=== PATIENT | female | born 1940 | race Caucasian/White ===

== ENCOUNTER 2021-09-28 09:03 | Inpatient (IN) | payer OTHER, MEDICARE, SELFPAY ==
[~2021-09-28] VITALS: Ht 152.4 cm; Wt 84.4 kg
[~2021-09-28 09:03] MED LIST: ATI.5 PO; CHOL400T PO; DILT30TA18 PO; DOCU-299 PO; ENAL-197 PO; ISOS30TE PO; NITR0.4T2 SL; NITR100C7 PO; RIVA15TA1 PO; SIMV40TA1 PO; SOTA80TA PO; SYN.05 PO
[2021-09-28 09:07] VITALS: BP 186/72
[2021-09-28] MEDS ORDERED: CLONIDINE HYDROCHLORIDE 0.1 MG TAB PO ONE (09:30)
[2021-09-28] MEDS ORDERED: FUROSEMIDE 40 MG TAB PO ONE (09:30)
[2021-09-28] MEDS ORDERED: SOTALOL 80 MG TAB PO ONE (09:30)
[2021-09-28] MEDS ORDERED: ISOSORBIDE MONONITRATE 30 MG TABER PO SCH (09:30)
[2021-09-28] MEDS ORDERED: DILTIAZEM 30 MG TAB PO ONE (09:30)
[2021-09-28] MEDS ORDERED: LOSARTAN 50 MG TAB PO SCH (09:30)
--- NOTE | 2021-09-28 10:01 | NUR ---
TIANNA SWAB COLLECTED AND WALKED TO LAB.
--- NOTE | 2021-09-28 10:05 | NUR ---
81/F BIB DAUGHTER WITH C/O HIGH BLOOD PRESSURE, CP AND DIZZINESS SINCE YESTERDAY. PER DAUGHTER PATIENTS BLOOD PRESSURE HAS BEEN ELEVATED THE LAST COUPLE DAYS, REPORTS TAKING HER PRESCRIBED HTN MEDICATIONS WITH NO RELIEF. PATIENT STATES SHE WAS HAVING INCREASED DIZZINESS, NAUSEA AND VOMITING WHEN BP WAS ELEVATED AT HOME, STATING WORSENING WHEN WALKING. DENIES TAKING HER MEDICATIONS TODAY PRIOR TO ARRIVAL TO ED, REPORTS 5/10 SHARP PAIN THAT IS CONSTANT, STATES PAIN IS NONRADIATING. DENIES SOB, FEVER, N/V/D AT THIS TIME.
[2021-09-28 10:14] LABS: BASOPHILS # (AUTO) 0.1 K/uL (0.00-0.22); BASOPHILS % (AUTO) 0.9 % (0.0-2.0); EOSINOPHILS # (AUTO) 0.1 K/uL (0-0.4); EOSINOPHILS % (AUTO) 1.9 % (0.0-4.0); HEMATOCRIT 39.1 % (36-48); HEMOGLOBIN 12.7 g/dL (12.0-16.0); LYMPHOCYTES % (AUTO) 18.4 % (20.5-51.1); MEAN CORPUSCULAR HEMOGLOBIN 28 pg (27-31); MEAN CORPUSCULAR HGB CONC 32 g/dL (33-37); MEAN CORPUSCULAR VOLUME 85.9 fL (80-94); MONOCYTES # (AUTO) 0.3 K/uL (0.8-1.0); NEUTROPHILS # (AUTO) 4.1 K/uL (1.8-7.7); NEUTROPHILS % (AUTO) 72.8 % (42.2-75.2); PLATELET COUNT (AUTO) 323 K/uL (140-450); RED BLOOD CELL COUNT(AUTO) 4.56 MIL/uL (4.20-5.40); RED CELL DISTRIBUTION WIDTH 15.1 % (11.6-13.7); WHITE BLOOD COUNT (AUTO) 5.7 K/uL (4.8-10.8)
--- NOTE | 2021-09-28 10:14 | NUR ---
PT TAKEN TO ER BED [address]
[2021-09-28 10:34] LABS: ALBUMIN 3.3 g/dL (3.4-5.0); ANION GAP 10.7 (8-16); ASPARTATE AMINOTRANSFERASE 26 U/L (15-37); CARBON DIOXIDE 32.6 mmol/L (21-32); CHLORIDE 104 mmol/L (98-107); GLUCOSE 115 mg/dL (74-106); POTASSIUM 4.3 mmol/L (3.5-5.1); SODIUM SERUM 143 mmol/L (136-145); TOTAL BILIRUBIN 0.3 mg/dL (0.0-1.0); UREA NITROGEN, BLOOD 16 mg/dL (7-18)
[2021-09-28 11:25] LABS: PROTHROMBIN TIME 10.6 secs (10.8-13.4)
--- NOTE | 2021-09-28 12:30 | NUR ---
PATIENT APPEARS TO BE RESTING IN BED, CALL LIGHT WITHIN REACH. PATIENT ON BEDSIDE ITALIAN TUTOR, WILL CONTINUE TO MONITOR.
[2021-09-28] MEDS ORDERED: CLON-527 TP (13:31)
[2021-09-28] MEDS ORDERED: ZOLPIDEM 5 MG TAB PO PRN (13:40)
[2021-09-28] MEDS ORDERED: POTASSIUM CHLORIDE 10 MEQ TABER PO PRN (13:40)
[2021-09-28] MEDS ORDERED: ONDANSETRON 4 MG/2 ML VIAL IVP PRN (13:40)
[2021-09-28] MEDS ORDERED: ACETAMINOPHEN 325 MG TAB PO PRN (13:40)
[2021-09-28] MEDS ORDERED: HYDROcodone/APAP 5/325 MG 1 TAB TAB PO PRN ×2 (13:40→17:00)
[2021-09-28] MEDS ORDERED: LORazepam 1 MG TAB PO PRN (13:40)
[2021-09-28] MEDS ORDERED: KCL 20 MEQ/WATER INJ PREMIX 200 ML IV PRN (13:40)
--- NOTE | 2021-09-28 14:24 | NUR ---
PT BEDSIDE FOR PHYSICAL THERAPY CONSULT
[2021-09-28] MEDS ORDERED: FUROSEMIDE 100 MG/10 ML VIAL IV SCH (15:20)
[2021-09-28] MEDS ORDERED: FENO145T PO (15:58)
[2021-09-28] MEDS ORDERED: RIVA15TA1 PO (15:58)
[2021-09-28] MEDS ORDERED: LOSA100T1 PO (15:58)
[2021-09-28] MEDS ORDERED: POTA10TA70 PO (15:58)
[2021-09-28] MEDS ORDERED: PANT40EC PO (15:58)
[2021-09-28] MEDS ORDERED: FEXO180T82 PO (15:58)
[2021-09-28] MEDS ORDERED: CRAN200C3 PO (15:58)
[2021-09-28] MEDS ORDERED: CETI1SOL PO (15:58)
[2021-09-28] MEDS ORDERED: GLUC1TAB68 PO (15:58)
[2021-09-28] MEDS ORDERED: PRAV10TA4 PO (15:58)
[2021-09-28] MEDS ORDERED: SERT25TA PO (15:58)
[2021-09-28] MEDS ORDERED: DENO60SO BC (15:58)
[2021-09-28] MEDS ORDERED: FURO-570 PO (15:58)
--- NOTE | 2021-09-28 16:00 | NUR ---
PATIENT APPEARS TO BE RESTING, DENIES PAIN OR DISCOMFORT AT THIS TIME. DAUGHTER AT BEDSIDE, PATIENT ON BEDSIDE CONFIGURATION SPECIALIST. WILL CONTINUE TO MONITOR.
--- NOTE | 2021-09-28 16:15 | NUR ---
LIGHTS DIMMED AND SUPPLIED WITH PILLOW FOR COMFORT, DENIES PAIN AT THIS TIME. WILL CONTINUE TO MONITOR.
[2021-09-28] MEDS: FUROSEMIDE 40 MG/4 ML VIAL IVP SCH (17:00)
--- NOTE | 2021-09-28 17:13 | NUR ---
Patient will be admitted to care of DR. HAWKINS. Admited to TELE. Will go to room 119B. Belongings list completed. Report to PETER.
--- NOTE | 2021-09-28 18:00 | NUR ---
RECEIVED PT FROM ER. PT IS 81 Y/O ADMITTED FOR HYPERTENSIVE URGENCY. 119B. ADMITTING MD DR. HAWKINS. AOX4. HAD CHEST PAIN AND DIZZINESS SINCE WEEKEND. MEDS WEREN'T BRINGING DOWN BP AT HOME. THEN HAD CHEST PAIN AND N/V. PT SPEAKS LAO. SKIN INTACT. IV IS A 20G ON LEFT FOREARM INTACT AND PATENT. SALINE LOCK. FULLY VACCINATED AND TIANNA NEGATIVE. ALLERGIC TO PENICILLIN AND CODEINE. AMBULATORY WITH ASSIST. PT ON RA. VS ARE WNL. PT IS STABLE.
--- NOTE | 2021-09-28 18:15 | NUR ---
PT VS ARE, BS 124/58, TEMP- 98.1, RR- 16, HR- 79, O2- 95% RA, PT IS STABLE.
--- NOTE | 2021-09-28 18:30 | NUR ---
ATTEMPTED TO GIVE PT LASIX PER MD ORDER AND IV IS NOT INTACT OR PATENT. WILL ENDORSE TO ENTOMOLOGY PROFESSOR FOR IV INSERTION AND TO ADMINISTER LASIX.
--- NOTE | 2021-09-28 19:25 | NUR ---
ENDORSED TO FLOOR PRESS OPERATOR NURSE FOR CONTINUITY OF CARE.
--- NOTE | 2021-09-28 19:26 | NUR ---
RECEIVED REPORT FROM AM NURSE FOR CONTINUITY OF CARE. PT IS STABLE. NO S/S OF DISTRESS. PT BREATHING ON RA. FAMILY MEMBERS AT BEDSIDE. AxOx4. IV NOT INTACT OR PATENT. NO IVF RUNNING. SKIN INTACT. SAFETY MEASURES IN PLACE. WILL CONTINUE TO MONITOR.
[2021-09-28 19:30] VITALS: BP 131/58
--- NOTE | 2021-09-28 19:30 | NUR ---
PT ADMITTED FOR HTN. PT IS AxOx4. SKIN IS INTACT. NO SIGNS OF NEUROLOGICAL DEFICIT. PT IS ABLE TO AMBULATE WITH NO DIFFICULTY AND MOVE EXTREMITIES. ON RA, LUNG SOUNDS ARE CLEAR. S1&S2 PRESENT, CAP REFILLS <3 SEC, SKIN IS WARM & DRY. BOWEL SOUNDS PRESENT, SOFT, AND NON-TENDER. NON-PITTING EDEMA PRESENT ON LOWER EXTREMITIES. EXPLAINED HOW TO USE CALL LIGHT AND VERBALIZED UNDERSTANDING. SAFETY MEASURES IN PLACE.
[2021-09-28] MEDS ORDERED: LORazepam 0.5 MG TAB PO PRN (21:00)
[2021-09-28] MEDS ORDERED: LORazepam 0.5 MG TAB PO SCH (21:00)
[2021-09-28] MEDS: ENALAPRIL 10 MG TAB PO SCH (21:36)
[2021-09-28] MEDS: SOTALOL 80 MG TAB PO SCH (21:40)
--- NOTE | 2021-09-28 21:40 | NUR ---
EXPLAINED PT MEDICATIONS ORDERED AND VERBALIZED UNDERSTANDING. RECHECK PT BP: 135/57 HR:67. PT TOLERATED IT WELL. WILL CONTINUE TO MONITOR. CALL LIGHT WITHIN REACH.
[2021-09-28] MEDS: ISOSORBIDE MONONITRATE 30 MG TABER PO SCH (21:41)
[2021-09-28] MEDS: DILTIAZEM 30 MG TAB PO SCH (21:41)
[2021-09-29] VITALS: BP 131/40
--- NOTE | 2021-09-29 00:04 | NUR ---
PT REQUESTED SLEEP MEDICATION. ADMINISTER AMBIEN ORDERED. PT TOLERATED IT WELL. ASSISTED PT TO RESTROOM. INSERTED A NEW IV ON R FOREARM 22G. CALL LIGHT WITHIN REACH AND SAFETY MEASURES IN PLACE. WILL CONTINUE TO MONITOR.
--- NOTE | 2021-09-29 02:38 | NUR ---
PT IN BED SLEEPING. CHEST RISE AND FALL SYMMETRICAL. NO LABORED BREATHING. CALL LIGHT WITHIN REACH.
[2021-09-29 04:00] VITALS: BP 133/55
--- NOTE | 2021-09-29 04:15 | NUR ---
PT IN BED. SHOWS NO SIGNS OF DISTRESS. CALL LIGHT WITHIN REACH. SAFETY MEASURES IN PLACE.
--- NOTE | 2021-09-29 06:02 | NUR ---
REMOVED IV ON LEFT FOREARM. PT IN BED. DENIES OF PAIN. CALL LIGHT WITHIN REACH.
[2021-09-29 07:04] LABS: ALBUMIN 3.3 g/dL (3.4-5.0); ANION GAP 8.9 (8-16); ASPARTATE AMINOTRANSFERASE 26 U/L (15-37); CARBON DIOXIDE 36.6 mmol/L (21-32); CHLORIDE 101 mmol/L (98-107); CREATININE 1.1 mg/dL (0.6-1.3); GLUCOSE 102 mg/dL (74-106); POTASSIUM 3.5 mmol/L (3.5-5.1); SODIUM SERUM 143 mmol/L (136-145); TOTAL BILIRUBIN 0.4 mg/dL (0.0-1.0); UREA NITROGEN, BLOOD 22 mg/dL (7-18)
[2021-09-29 07:11] LABS: MAGNESIUM 1.9 mg/dL (1.8-2.4)
[2021-09-29 07:21] LABS: BASOPHILS # (AUTO) 0.1 K/uL (0.00-0.22); BASOPHILS % (AUTO) 0.8 % (0.0-2.0); EOSINOPHILS # (AUTO) 0.1 K/uL (0-0.4); EOSINOPHILS % (AUTO) 1.4 % (0.0-4.0); LYMPHOCYTES # (AUTO) 1.4 K/uL (2.5-16.5); LYMPHOCYTES % (AUTO) 21.8 % (20.5-51.1); MEAN CORPUSCULAR HEMOGLOBIN 28 pg (27-31); MEAN CORPUSCULAR HGB CONC 32 g/dL (33-37); MEAN CORPUSCULAR VOLUME 86.2 fL (80-94); MONOCYTES # (AUTO) 0.6 K/uL (0.8-1.0); MONOCYTES % (AUTO) 8.9 % (1.7-9.3); NEUTROPHILS # (AUTO) 4.2 K/uL (1.8-7.7); NEUTROPHILS % (AUTO) 67.1 % (42.2-75.2); PLATELET COUNT (AUTO) 335 K/uL (140-450); RED BLOOD CELL COUNT(AUTO) 4.64 MIL/uL (4.20-5.40); RED CELL DISTRIBUTION WIDTH 15.2 % (11.6-13.7); WHITE BLOOD COUNT (AUTO) 6.3 K/uL (4.8-10.8)
--- NOTE | 2021-09-29 07:31 | NUR ---
ENDORSED REPORT TO AM NURSE FOR CONTINUITY OF CARE. PT STABLE.
--- NOTE | 2021-09-29 07:32 | NUR ---
RECEIVED REPORT FROM CIGARETTE FILTER INSPECTOR NURSE FOR CONTINUITY OF CARE. PT IS AOX4, ABLE TO MAKE NEEDS KNOWN. ON ROOM AIR AND NO S/S OF DISTRESS. FAMILY MEMBERS AT BEDSIDE. IV INTACT AND PATENT AND NO IVF RUNNING. SKIN INTACT. PLAN OF CARE DISCUSSED. SAFETY MEASURES IN PLACE. CALL LIGHT WITHIN REACH. WILL CONTINUE TO MONITOR.
[2021-09-29 08:00] VITALS: BP 129/62
--- NOTE | 2021-09-29 08:41 | NUR ---
PATIENT HAS BEEN SCREENED AND CATEGORIZED MODERATE NUTRITION RISK. PATIENT WILL BE SEEN WITHIN 3-5 DAYS OF ADMISSION. 09/29/21 10/03/[address]
[2021-09-29] MEDS: SOTALOL 80 MG TAB PO SCH (09:00)
[2021-09-29] MEDS ORDERED: ENALAPRIL 10 MG TAB PO SCH (09:00)
[2021-09-29] MEDS ORDERED: SIMVASTATIN 40 MG TAB PO SCH (09:00)
[2021-09-29] MEDS ORDERED: LEVOTHYROXINE 0.05 MG TAB PO SCH (09:00)
[2021-09-29] MEDS ORDERED: DOCUSATE SODIUM 100 MG GELCAP PO SCH (09:00)
[2021-09-29] MEDS: ENALAPRIL 10 MG TAB PO SCH (09:00)
[2021-09-29] MEDS ORDERED: RIVAROXABAN 15 MG TAB PO SCH (09:00)
[2021-09-29] MEDS: DILTIAZEM 30 MG TAB PO SCH (09:26)
[2021-09-29] MEDS: ISOSORBIDE MONONITRATE 30 MG TABER PO SCH (09:27)
[2021-09-29] MEDS: FUROSEMIDE 40 MG/4 ML VIAL IVP SCH (09:27)
--- NOTE | 2021-09-29 09:35 | NUR ---
ALL SCHEDULED MEDS GIVEN. PT IS STABLE. NO DISTRESS NOTED. WILL CONTINUE TO MONITOR.
--- NOTE | 2021-09-29 12:10 | NUR ---
CHECKED ON PATIENT. PATIENT IS STABLE. NO DISTRESS NOTED. WILL CONTINUE TO MONITOR.
[2021-09-29] MEDS ORDERED: ENAL-197 PO (13:14)
[2021-09-29 13:51] VITALS: BP 122/59
--- NOTE | 2021-09-29 14:20 | NUR ---
ENDORSED DISCHARGE INSTRUCTIONS TO PATIENT. PATIENT VERBALIZED UNDERSTANDING AND SIGNED DISCHARGE FORMS.
--- NOTE | 2021-09-29 14:35 | NUR ---
PATIENT DISCHARGED OFF THE UNIT. IV CATHETER AND ID BAND REMOVED. PT WAS ESCORTED TO THE FRONT LOBBY AND PICKED UP BY DAUGHTER. PT WAS STABLE PRIOR TO DISCHARGE.
== END 2021-09-29 14:35 | disposition home or self-care (01) | DRG 198 ==
LOC: MED 09:03 → MTU 13:44
PROVIDERS: ADMIT Hospitalist; ATTEND Hospitalist
DX: I24.9 Acute ischemic heart disease, unspecified (principal); J96.01 Acute respiratory failure with hypoxia; I50.33 Acute on chronic diastolic (congestive) heart failure; I43 Cardiomyopathy in diseases classified elsewhere; I11.0 Hypertensive heart disease with heart failure; E03.9 Hypothyroidism, unspecified; E78.5 Hyperlipidemia, unspecified; Z20.822 Contact with and (suspected) exposure to COVID-19; I16.0 Hypertensive urgency; E66.9 Obesity, unspecified; E55.9 Vitamin D deficiency, unspecified; I48.0 Paroxysmal atrial fibrillation; Z88.5 Allergy status to narcotic agent; Z88.0 Allergy status to penicillin; Z79.899 Other long term (current) drug therapy; Z68.36 Body mass index [BMI] 36.0-36.9, adult; Z79.01 Long term (current) use of anticoagulants
CPT/HCPCS: 36415; 70450; 71045; 80053; 83036; 83735; 83880; 84484; 85025; 85610; 85730; 87081; 93005; 97112; 97116; 97163-GP; 97530; 99285; J1940; Q0092

== ENCOUNTER 2022-10-23 21:41 | Inpatient (IN) | payer OTHER ==
[~2022-10-23] VITALS: Ht 152.4 cm; Wt 83.5 kg
[~2022-10-23 21:41] MED LIST changes: +CETI1SOL PO; +CRAN200C3 PO; +DENO60SO BC; +FENO145T PO; +FEXO180T82 PO; +FURO-570 PO; +GLUC1TAB68 PO; -NITR100C7 PO; +PANT40EC PO; +POTA10TA70 PO; +PRAV10TA4 PO; +SERT25TA PO
[2022-10-23 22:07] VITALS: BP 164/82
--- NOTE | 2022-10-23 22:07 | NUR ---
TO BED VIA WHEEL CHAIR
[2022-10-23] MEDS ORDERED: DICYCLOMINE HCL LIQUID 20 MG, ALUMINUM HYD/MAG/SIMETHICONE 30 ML, LIDOCAINE VISCOUS 2% ... PO ONE ×3 (22:40)
[2022-10-23] MEDS ORDERED: ONDANSETRON 4 MG ODT PO ONE (22:40)
[2022-10-23 22:44] LABS: BASOPHILS % (AUTO) 0.5 % (0.0-2.0); EOSINOPHILS # (AUTO) 0.1 K/uL (0-0.4); EOSINOPHILS % (AUTO) 1.5 % (0.0-4.0); HEMOGLOBIN 13.2 g/dL (12.0-16.0); LYMPHOCYTES # (AUTO) 1.3 K/uL (2.5-16.5); LYMPHOCYTES % (AUTO) 16.3 % (20.5-51.1); MEAN CORPUSCULAR HEMOGLOBIN 28 pg (27-31); MEAN CORPUSCULAR HGB CONC 32 g/dL (33-37); MEAN CORPUSCULAR VOLUME 86.8 fL (80-94); MONOCYTES # (AUTO) 0.6 K/uL (0.8-1.0); MONOCYTES % (AUTO) 7.2 % (1.7-9.3); NEUTROPHILS # (AUTO) 6.1 K/uL (1.8-7.7); NEUTROPHILS % (AUTO) 74.5 % (42.2-75.2); PLATELET COUNT (AUTO) 400 K/uL (140-450); RED BLOOD CELL COUNT(AUTO) 4.73 MIL/uL (4.20-5.40); RED CELL DISTRIBUTION WIDTH 14.8 % (11.6-13.7); WHITE BLOOD COUNT (AUTO) 8.1 K/uL (4.8-10.8)
[2022-10-23] MEDS ORDERED: DICYCLOMINE HCL LIQUID 10 MG/5 ML UDC ONE ×2 (22:57→23:05)
[2022-10-23] MEDS ORDERED: ALUMINUM HYD/MAG/SIMETHICONE 30 ML UDC ONE ×2 (22:57→23:05)
[2022-10-23 23:07] LABS: ALBUMIN 2.4 g/dL (3.4-5.0); ANION GAP 9.1 (8-16); ASPARTATE AMINOTRANSFERASE 24 U/L (15-37); CARBON DIOXIDE 35.6 mmol/L (21-32); CHLORIDE 102 mmol/L (98-107); CREATININE 0.9 mg/dL (0.6-1.3); GLUCOSE 155 mg/dL (74-106); POTASSIUM 3.7 mmol/L (3.5-5.1); SODIUM SERUM 143 mmol/L (136-145); TOTAL BILIRUBIN 0.3 mg/dL (0.0-1.0); UREA NITROGEN, BLOOD 12 mg/dL (7-18)
[2022-10-23 23:35] LABS: APPEARANCE,URINE CLOUDY (CLEAR); BILIRUBIN,URINE 1+ (NEGATIVE); BLOOD, URINE 1+ (NEGATIVE); COLOR,URINE YELLOW (YELLOW); LEUKOCYTE ESTERASE ,URINE 2+ (NEGATIVE); NITRITE, URINE POSITIVE (NEGATIVE); PH,URINE 6.5 (5.0-9.0); UGLUCOSE TRACE (NEGATIVE)
[2022-10-23] MEDS ORDERED: CLON0.1T16 PO (23:44)
[2022-10-23 23:46] LABS: RBC,URINE 0-5 /HPF (0-5)
[2022-10-24] MEDS ORDERED: AZITHROMYCIN 500 MG in DEXTROSE 5% 250 ML IV ONE (00:25)
[2022-10-24] MEDS ORDERED: cefTRIAXone 1,000 MG VIAL ONE (00:49)
[2022-10-24] MEDS ORDERED: AZITHROMYCIN 500 MG INJ VIAL IV ONE (00:49)
[2022-10-24] MEDS ORDERED: ALBUTEROL SULFATE/IPRATROPIU 3 ML SOL IH ONE (01:05)
--- NOTE | 2022-10-24 01:54 | NUR ---
Patient will be admitted to care of MD Felicia. Admited to telemetry. Will go to room 125B. Belongings list completed. Report to NANDA Perales.
--- NOTE | 2022-10-24 02:30 | NUR ---
PT WAS ADMITTED TO [facility] DIAGNOSIS OF PNA, UTI AND HYPOXIA. PT IS AOX4, GERMAN SPEAKING, ABLE TO VERBALIZE NEEDS AND ABLE TO FOLLOW COMMAND. PT IS ON BED REST WITH 3L NC AND ON CARDIAC DIET. PT HAS SALINE LOCK ON RIGHT AC GAUGE 20. PT SKIN IS INTACT. ORIENTED TO HOSPITAL/ROOM, BED BUTTONS AND CALL LIGHT. ALL SAFETY MEASURES IMPLEMENTED. BED IN LOW POSITION, BED WHEELS ON LOCK AND CALL LIGHT WITHIN REACH.
[2022-10-24 04:00] VITALS: BP 130/64
--- NOTE | 2022-10-24 04:00 | NUR ---
PT IS SLEEPING. CHEST RISE AND FALL SYMMETRICALLY NOTED. RESPIRATION IS EVEN AND UNLABORED. ALL SAFETY MEASURES IMPLEMENTED. BED IN LOW POSITION, BED WHEELS ON LOCK AND CALL LIGHT WITHIN REACH.
[2022-10-24 06:08] LABS: BASOPHILS % (AUTO) 0.5 % (0.0-2.0); EOSINOPHILS # (AUTO) 0.1 K/uL (0-0.4); EOSINOPHILS % (AUTO) 1.3 % (0.0-4.0); HEMATOCRIT 37.2 % (36-48); HEMOGLOBIN 11.7 g/dL (12.0-16.0); LYMPHOCYTES # (AUTO) 1.4 K/uL (2.5-16.5); LYMPHOCYTES % (AUTO) 18.3 % (20.5-51.1); MEAN CORPUSCULAR HEMOGLOBIN 28 pg (27-31); MEAN CORPUSCULAR HGB CONC 32 g/dL (33-37); MEAN CORPUSCULAR VOLUME 88.5 fL (80-94); MONOCYTES # (AUTO) 0.7 K/uL (0.8-1.0); NEUTROPHILS # (AUTO) 5.4 K/uL (1.8-7.7); NEUTROPHILS % (AUTO) 70.9 % (42.2-75.2); PLATELET COUNT (AUTO) 362 K/uL (140-450); WHITE BLOOD COUNT (AUTO) 7.6 K/uL (4.8-10.8)
[2022-10-24 06:24] LABS: ANION GAP 5.7 (8-16); CHLORIDE 104 mmol/L (98-107); CREATININE 0.9 mg/dL (0.6-1.3); GLUCOSE 111 mg/dL (74-106); POTASSIUM 4.2 mmol/L (3.5-5.1); SODIUM SERUM 146 mmol/L (136-145); UREA NITROGEN, BLOOD 12 mg/dL (7-18)
[2022-10-24 07:10] LABS: CARBON DIOXIDE 40.5 mmol/L (21-32)
--- NOTE | 2022-10-24 07:20 | NUR ---
RECEIVED REPORT FROM IT MANAGER NURSE MYRA FOR CONTINUITY OF CARE. PT STABLE IN BED RESTING. NO SIGNS OF DISTRESS. ALL SAFETY PRECAUTIONS IN PLACE. WILL CONTINUE TO MONITOR.
--- NOTE | 2022-10-24 07:25 | NUR ---
PT IS STABLE. ENDORSED PT TO MORNING SHIFT NURSE FOR CONTINUITY OF CARE.
[2022-10-24] MEDS ORDERED: POTASSIUM CHLORIDE 10 MEQ TABER PO PRN (07:35)
[2022-10-24] MEDS ORDERED: ACETAMINOPHEN 325 MG TAB PO PRN (07:35)
[2022-10-24] MEDS ORDERED: ZOLPIDEM 5 MG TAB PO PRN (07:35)
[2022-10-24] MEDS ORDERED: DOCUSATE SODIUM 100 MG GELCAP PO PRN (07:35)
[2022-10-24] MEDS ORDERED: ONDANSETRON 4 MG/2 ML VIAL IM/IVP PRN (07:35)
[2022-10-24] MEDS ORDERED: guaiFENesin DM 200/20 MG-10 ML 10 ML UDC PO PRN (07:35)
[2022-10-24] MEDS ORDERED: HYDROcodone/APAP 7.5/325 MG 1 TAB PO PRN (07:35)
[2022-10-24] MEDS ORDERED: CLONIDINE HYDROCHLORIDE 0.1 MG TAB PO PRN (07:40)
[2022-10-24 08:00] VITALS: BP 120/48
[2022-10-24] MEDS: LEVOTHYROXINE 0.05 MG TAB PO SCH (08:09)
[2022-10-24 08:58] LABS: PHOSPHORUS 4.7 mg/dL (2.5-4.9)
[2022-10-24] MEDS: SOTALOL 80 MG TAB PO SCH ×2 (09:00→20:21)
[2022-10-24] MEDS ORDERED: FUROSEMIDE 40 MG TAB PO SCH (09:00)
[2022-10-24] MEDS: RIVAROXABAN 15 MG TAB PO SCH (09:00)
[2022-10-24] MEDS: PANTOPRAZOLE 40 MG TABEC PO SCH (10:02)
[2022-10-24] MEDS: SERTRALINE 50 MG TAB PO SCH (10:03)
[2022-10-24] MEDS: ISOSORBIDE MONONITRATE 30 MG TABER PO SCH ×2 (10:04→20:21)
[2022-10-24] MEDS: VITAMIN D 400 IU TAB PO SCH (10:04)
[2022-10-24] MEDS: DOCUSATE SODIUM 100 MG GELCAP PO SCH (10:04)
[2022-10-24] MEDS: POTASSIUM CHLORIDE 10 MEQ TABER PO SCH (10:04)
[2022-10-24] MEDS: DILTIAZEM 30 MG TAB PO SCH ×2 (10:05→20:22)
--- NOTE | 2022-10-24 10:27 | NUR ---
PATIENT HAS BEEN SCREENED AND CATEGORIZED MODERATE NUTRITION RISK. PATIENT WILL BE SEEN WITHIN 3-5 DAYS OF ADMISSION. REVIEWED BY BUBBA ROSS RD
[2022-10-24 12:00] VITALS: BP 114/41
[2022-10-24] MEDS: ALBUTEROL SULFATE/IPRATROPIU 3 ML SOL IH SCH ×3 (15:00→23:00)
[2022-10-24 16:00] VITALS: BP 121/40
--- NOTE | 2022-10-24 18:05 | NUR ---
P.T. NOTES P.T. EVAL COMPLETED; REFER TO EVAL FOR DETAILS.
--- NOTE | 2022-10-24 19:15 | NUR ---
ENDORSED PT TO ECONOMETRICS PROFESSOR NURSE MYRA FOR CONTINUITY OF CARE. PT STABLE AT THIS TIME.
--- NOTE | 2022-10-24 19:16 | NUR ---
RECEIVED PT FROM MORNING SHIFT NURSE WITH RELATIVE BEDSIDE. PT IS A0X4, ROMANSH SPEAKING, AMBULATORY, ABLE TO VERBALIZE NEEDS AND ABLE TO FOLLOW COMMANDS. PT HAS 3L NC AND ON CARDIAC DIET. PT IV ON RIGHT AC GAUGE 20 SALINE LOCK. PT SKIN IS INTACT. PT DENIES PAIN AT THIS TIME. NO S/S OF RESPIRATORY DISTRESS NOTED. ALL SAFETY MEASURES IMPLEMENTED. BED IN LOW POSITION, BED WHEELS ON LOCK AND CALL LIGHT WITHIN REACH.
[2022-10-24 20:00] VITALS: BP 115/62
[2022-10-24] MEDS: AZITHROMYCIN 500 MG in DEXTROSE 5% 250 ML IV SCH (20:20)
[2022-10-24] MEDS: SIMVASTATIN 40 MG TAB PO SCH (20:21)
--- NOTE | 2022-10-24 20:22 | NUR ---
ALL SCHEDULED AND PRESCRIBED MEDICATION WAS GIVEN TO PT PER MD ORDER. ALL SAFETY MEASURES IMPLEMENTED. BED IN LOW POSITION, BED WHEELS ON LOCK AND CALL LIGHT WITHIN REACH.
[2022-10-24] MEDS: FUROSEMIDE 40 MG/4 ML VIAL IVP SCH (22:19)
--- NOTE | 2022-10-24 22:19 | NUR ---
SCHEDULED AND PRESCRIBED LASIX WAS GIVEN TO PT PER MD ORDER. ALL SAFETY MEASURES IMPLEMENTED. BED IN LOW POSITION, BED WHEELS ON LOCK AND CALL LIGHT WITHIN REACH.
[2022-10-25] VITALS: BP 123/60
[2022-10-25] MEDS: ALBUTEROL SULFATE/IPRATROPIU 3 ML SOL IH SCH ×5 (03:00→23:45)
[2022-10-25 04:00] VITALS: BP 119/57
[2022-10-25 05:31] LABS: BASOPHILS % (AUTO) 0.4 % (0.0-2.0); EOSINOPHILS # (AUTO) 0.1 K/uL (0-0.4); EOSINOPHILS % (AUTO) 0.8 % (0.0-4.0); HEMATOCRIT 36.1 % (36-48); HEMOGLOBIN 11.6 g/dL (12.0-16.0); LYMPHOCYTES # (AUTO) 1.2 K/uL (2.5-16.5); LYMPHOCYTES % (AUTO) 16.2 % (20.5-51.1); MEAN CORPUSCULAR HEMOGLOBIN 29 pg (27-31); MEAN CORPUSCULAR HGB CONC 32 g/dL (33-37); MEAN CORPUSCULAR VOLUME 89.7 fL (80-94); MONOCYTES # (AUTO) 0.6 K/uL (0.8-1.0); MONOCYTES % (AUTO) 7.9 % (1.7-9.3); NEUTROPHILS # (AUTO) 5.6 K/uL (1.8-7.7); NEUTROPHILS % (AUTO) 74.7 % (42.2-75.2); PLATELET COUNT (AUTO) 305 K/uL (140-450); RED BLOOD CELL COUNT(AUTO) 4.02 MIL/uL (4.20-5.40); RED CELL DISTRIBUTION WIDTH 14.8 % (11.6-13.7); WHITE BLOOD COUNT (AUTO) 7.5 K/uL (4.8-10.8)
[2022-10-25] MEDS: LEVOTHYROXINE 0.05 MG TAB PO SCH (05:38)
--- NOTE | 2022-10-25 05:58 | NUR ---
NOTIFIED DR. MCFARLAND REGARDING PT CONDITION. PT HAS SUDDEN MENTAL STATUS. PT IS JUST NODDING ON QUESTIONS AND NOT VERBALLY RESPONDING. TRIED TO GIVE WATER BUT NOT SEEMS TO UNDERSTAND. PT VS BP-119/57, P-77 RR-20 AND O2-95% WITH 3L NC. WILL WAIT FOR MD ORDER
[2022-10-25 06:11] LABS: ANION GAP 6.3 (8-16); CHLORIDE 101 mmol/L (98-107); GLUCOSE 121 mg/dL (74-106); POTASSIUM 4.3 mmol/L (3.5-5.1); SODIUM SERUM 145 mmol/L (136-145); UREA NITROGEN, BLOOD 20 mg/dL (7-18)
--- NOTE | 2022-10-25 06:47 | NUR ---
DR. MCFARLAND ORDER CT OF THE HEAD STAT.ORDER WAS MADE AND CARRIED OUT.
--- NOTE | 2022-10-25 06:49 | NUR ---
NOTIFIED DR. MCFARLAND REGARDING PT'S CRITICAL VALUE OF CO2-42.
--- NOTE | 2022-10-25 07:35 | NUR ---
PT IS STABLE. ENDORSED PT TO MORNING SHIFT NURSE FOR CONTINUITY OF CARE.
--- NOTE | 2022-10-25 07:36 | NUR ---
RECEIVED PT FROM REINFORCEMENT MAKER NURSE. PT IN BED AROUSABLE TO VOICE. RESPIRATIONS EVEN ON 3L OF O2 VIA N/C. IV ON R A/C 20G. DURING MORNING ASSESSMENT PT ONLY NODS HEAD TO ANSWER.. GOES BACK TO SLEEP. CALL LIGHT WITHIN REACH. ALL SAFETY PRECAUTIONS IN PLACE.
[2022-10-25 08:00] VITALS: BP 131/40
--- NOTE | 2022-10-25 08:00 | NUR ---
Patient's Plan of Care was discussed and reviewed with KATHIE: SATHISH
--- NOTE | 2022-10-25 08:05 | NUR ---
DR CRAWLEY NOTIFIED OF CRITICAL RESULTS FROM ABG. DR ORDERED BIPAP 10/01 R 14 28%. WILL CONTINUE TO MONITOR PT. PT IS PLACED ON BIPAP AND IS TOLERATING WELL. RN MADE AWARE. DR CRAWLEY ORDERED REPEAT ABG IN FOUR HOURS.
--- NOTE | 2022-10-25 08:10 | NUR ---
RT STATES PT CO2 VERY HIGH SHE NEEDS BIPAP INFORMED HER SHE WAS ABOUT TO GO TO RADIOLOGY FOR CT SCAN. RT STATES RIGHT NOW SHE NEEDS BIPAP. INFORMED RADIOLOGIST TECH PT CANT LEAVE UNIT AT THIS TIME SHE IS AWAITING BIPAP PLACEMENT.
--- NOTE | 2022-10-25 08:43 | NUR ---
DR MCFARLAND MAKING ROUNDS INFORMED DR THAT PT WAS NOT ABLE TO GO GET CT SCAN THIS MORNING DUE TO HER NEEDING BIPAP AT THAT TIME.
[2022-10-25] MEDS: DOCUSATE SODIUM 100 MG GELCAP PO SCH ×2 (09:00→12:09)
[2022-10-25] MEDS: ISOSORBIDE MONONITRATE 30 MG TABER PO SCH ×3 (09:00→20:26)
[2022-10-25] MEDS: VITAMIN D 400 IU TAB PO SCH ×2 (09:00→12:06)
[2022-10-25] MEDS: SOTALOL 80 MG TAB PO SCH ×3 (09:00→20:26)
[2022-10-25] MEDS: SERTRALINE 50 MG TAB PO SCH ×2 (09:00→12:07)
[2022-10-25] MEDS: POTASSIUM CHLORIDE 10 MEQ TABER PO SCH (09:00)
[2022-10-25] MEDS: FUROSEMIDE 40 MG/4 ML VIAL IVP SCH (09:00)
[2022-10-25] MEDS: DILTIAZEM 30 MG TAB PO SCH ×3 (09:00→20:24)
[2022-10-25] MEDS: PANTOPRAZOLE 40 MG TABEC PO SCH ×2 (09:00→12:06)
[2022-10-25] MEDS: RIVAROXABAN 15 MG TAB PO SCH ×2 (09:00→12:36)
--- NOTE | 2022-10-25 10:13 | NUR ---
COFFEE SHOP MANAGER AT BEDSIDE.
--- NOTE | 2022-10-25 11:04 | NUR ---
TECH AT BEDSIDE FOR U/S
--- NOTE | 2022-10-25 13:00 | NUR ---
RT ATTEMPTED TO OBTAIN FOLLOW UP ABG. PT REFUSED TELLING THE NURSE HER BLOOD IS BAD AND SHE DOESNT WANT TO GIVE HER BLOOD. RN EXPLAINED WE NEED IT TO SEE HOW SHE IS OXYGENATING IN HER BLOOD AND PT CONTINUED TO REFUSE. RN EXPLAIN EVERYTHING IN TURKISH FOR PT. DR CRAWLEY IS UPDATED ON REFUSAL. WILL CONTINUE TO MONITOR.
--- NOTE | 2022-10-25 13:10 | NUR ---
PT BIPAP ALARM SETTINGS CHANGED DUE TO PT NEEDS. NO DISTRESS NOTED.
--- NOTE | 2022-10-25 13:50 | NUR ---
CALLED CT ASKING ABOUT PT PICKUP. TECH STATED SINCE PT IS ON BIPAP AND MONITOR RT WILL HAVE TO BE PRESENT WELL NURSE. CALLED RT TO COORDINATE AVAILABLE TIME.
--- NOTE | 2022-10-25 14:13 | NUR ---
CALLED CT TO FOLLOW UP ON ORDERED HEAD CT. TECH STATES THEY ARE BUSY WITH ER AND WILL CALL BACK WHEN THEY ARE AVAILABLE. INFORMED RT.
[2022-10-25] MEDS ORDERED: LORazepam 2 MG/ML VIAL IVP PRN (14:35)
--- NOTE | 2022-10-25 14:57 | NUR ---
PT AGITATED AND CONFUSED NON COMPLIANT WITH CARE ATIVAN GIVEN ORDERED
--- NOTE | 2022-10-25 15:00 | NUR ---
@3744 PT WAS TAKEN OF BIPAP PER DR CRAWLEY ORDER APPROVAL TO HAVE PT 4 HOURS ON BIPAP AND FOUR HOURS OFF. AT NIGHT PT NEEDS BIPAP CONT. PT IS SET UP ON CONT. PT IS ON 2L NC AND IS RESPONSIVE TO FAMILY. PULSE OX AT BEDSIDE HR 83 SPO2 94%.FAMILY IS AT BEDSIDE WITH PT STATING PT IS A LITTLE CONFUSED AND WILL STAY WITH HER UNTIL VISITING HOURS ARE OVER. RN AWARE TO KEEP EYE OUT IF PT BECOMES IN ANY RESP DISTRESS TO PLACE BIPAP BACK ON PT [place]. AND CALL RT. PT IS WAITING TO GO TO CT . TECH STATED THEY ARE BUSY WITH ER AND WILL FIT HER IN WHEN AVAILABLE. WILL CONTINUE TO MONITOR.
--- NOTE | 2022-10-25 15:36 | NUR ---
PHYSICAL THERAPY CO-SIGN The Physical Therapy Progress Notes documented by News Videotape Editor have been reviewed. Reviewed/Co-Signed by: Lizzeth Espinosa PT Documentation Done by:TONO MALONE STRANDING SUPERVISOR Addendum: 10/25/22 at 1537 by Lizzeth Espinosa PT Amended: Links added.
[2022-10-25 16:00] VITALS: BP 148/76
[2022-10-25 20:00] VITALS: BP 128/60
--- NOTE | 2022-10-25 20:00 | NUR ---
PATIENT AWAKE SITTING ON BEDSIDE COMMODE WITH DAUGHTER AT BEDSIDE. O2 AT 3L NC SATING 98%. NO S/S OF RESPIRATORY DISTRESS. RESPIRATION EVEN UNLABORED. CALL LIGHT WITHIN REACH.
--- NOTE | 2022-10-25 20:24 | NUR ---
ALL 2100 SCHEDULED MEDICATIONS GIVEN, TOLERATED WELL.
[2022-10-25] MEDS: SIMVASTATIN 40 MG TAB PO SCH (20:26)
--- NOTE | 2022-10-25 21:20 | NUR ---
PATIENT ON BIPAP AT 20% FIO2 TOLERATING WELL SATING 99%.
[2022-10-25] MEDS: AZITHROMYCIN 500 MG in DEXTROSE 5% 250 ML IV SCH (21:30)
[2022-10-26] VITALS: BP 127/60
[2022-10-26] MEDS: ALBUTEROL SULFATE/IPRATROPIU 3 ML SOL IH SCH ×6 (03:35→23:01)
[2022-10-26 04:00] VITALS: BP 153/69
--- NOTE | 2022-10-26 05:23 | NUR ---
PATIENT IVF INFILTRATED. STARTED A NEW IV LINE ON THE RIGHT FOREARM WITH GOOD RETURN OF BLOOD.
[2022-10-26 05:49] LABS: BASOPHILS % (AUTO) 0.6 % (0.0-2.0); EOSINOPHILS # (AUTO) 0.1 K/uL (0-0.4); EOSINOPHILS % (AUTO) 1.1 % (0.0-4.0); HEMATOCRIT 36.5 % (36-48); HEMOGLOBIN 11.5 g/dL (12.0-16.0); LYMPHOCYTES # (AUTO) 1.1 K/uL (2.5-16.5); LYMPHOCYTES % (AUTO) 16.9 % (20.5-51.1); MEAN CORPUSCULAR HEMOGLOBIN 28 pg (27-31); MEAN CORPUSCULAR HGB CONC 32 g/dL (33-37); MEAN CORPUSCULAR VOLUME 88.7 fL (80-94); MONOCYTES # (AUTO) 0.5 K/uL (0.8-1.0); MONOCYTES % (AUTO) 8.1 % (1.7-9.3); NEUTROPHILS # (AUTO) 4.7 K/uL (1.8-7.7); NEUTROPHILS % (AUTO) 73.3 % (42.2-75.2); PLATELET COUNT (AUTO) 321 K/uL (140-450); RED BLOOD CELL COUNT(AUTO) 4.12 MIL/uL (4.20-5.40); RED CELL DISTRIBUTION WIDTH 14.9 % (11.6-13.7); WHITE BLOOD COUNT (AUTO) 6.4 K/uL (4.8-10.8)
[2022-10-26] MEDS: LEVOTHYROXINE 0.05 MG TAB PO SCH (06:18)
[2022-10-26 06:34] LABS: ANION GAP 7.5 (8-16); CHLORIDE 99 mmol/L (98-107); CREATININE 0.8 mg/dL (0.6-1.3); GLUCOSE 109 mg/dL (74-106); POTASSIUM 4.4 mmol/L (3.5-5.1); SODIUM SERUM 145 mmol/L (136-145); UREA NITROGEN, BLOOD 19 mg/dL (7-18)
[2022-10-26 06:48] LABS: CARBON DIOXIDE 42.9 mmol/L (21-32)
--- NOTE | 2022-10-26 06:48 | NUR ---
LAB CALLED REPORTING CRITICAL LAB VALUE CO2 42.9. DR MCFARLAND MADE AWARE ORDERED TO NOTIFY RT. RT NOTIFIED. (BO)
--- NOTE | 2022-10-26 07:27 | NUR ---
ENDORSED PATIENT TO AM SHIFT NURSE FOR CONTINUITY OF CARE.
--- NOTE | 2022-10-26 07:29 | NUR ---
RECEIVED PT FROM SOUND ASSISTANT NURSE FOR CONTINUITY OF CARE.
[2022-10-26 08:00] VITALS: BP 161/68
--- NOTE | 2022-10-26 08:10 | NUR ---
REVIEWED PULMONARY AND BIPAP STATUS; CONTINUE WITH BIPAP 4 ON AND 4 OFF DURING DAYS FOR NOW; ABG AFTER 1 HOUR OFF BIPAP; CALL MD WITH RESULTS
[2022-10-26] MEDS: RIVAROXABAN 15 MG TAB PO SCH (09:00)
[2022-10-26] MEDS: FUROSEMIDE 40 MG/4 ML VIAL IVP SCH (09:00)
--- NOTE | 2022-10-26 10:17 | NUR ---
COURTESY CALL TO DR. GRETCHEN CRAWLEY AT [facility] [phone] TO REVIEW ABG RESULTS; BOUBACAR/EXCHANGE TO KEARA PRECIADO MD; PATIENT INFORMATION AND CALL BACK NUMBER GIVEN
--- NOTE | 2022-10-26 10:25 | NUR ---
PT. WITH LOW DEBORAH SCALE AT MODERATE TO HIGH RISK, CONTINUE TO FOLLOW PRESSURE INJURY PREVENTION INTERVENTIONS. -POSITIONING: TURN AND REPOSITION PATIENT Q 2H OR SOONER USE PILLOWS TO KEEP BONY PROMINENCES FROM DIRECT CONTACT WITH SURFACES USE REPOSITIONING WEDGES TO PROVIDE 30-DEGREE ANGLE FOR SIDE LYING POSITIONS OFFLOADING OR FOAM DRESSING TO ALL TUBING TO PREVENT MEDICAL DEVICES RELATED PRESSURE INJURY -RE-EVALUATING AND MANAGING INCONTINENCE MONITOR SKIN CONDITION DURING POSITION CHANGE DO NOT MASSAGE REDNESS, BONY PROMINENCES FREQUENT VERN-CARE AND PROVIDE BARRIER CREAMS PRN IF SOILING MOISTURE CONTROL BY OFFER BED CROCKETT/URINAL /ABSORBENT PAD TO WICK AND HOLD MOISTURE KEEP SKIN DRY AND PROTECT FROM FRICTION -MANAGE FRICTION/SHEAR/MOBILITY KEEP HOB AT THE LOWEST LEVEL OF ELEVATION NO MORE THAN 30 DEGREE UNLESS OTHERWISE CONTRAINDICATED USE LIFT SHEET OR TRANSFER DEVICE TO MOVE PATIENT AND PREVENT LATERAL SHEER. PROTECT HEELS, ELBOWS BONY PROMINENCES WITH SKIN BERRIES OR FOAM DRESSING IF EXPOSED TO FRICTION OFFLOAD BILATERAL HEELS BY PLACING PILLOWS UNDER CALVES AT ALL TIMES, UNLESS OTHERWISE CONTRAINDICATED -PRESSURE REDISTRIBUTION SURFACE THERAPY TARUN ISOFLEX MATTRESS -NUTRITION: PLEASE FOLLOW RD RECOMMENDATIONS AND OFFER NUTRITION SUPPLEMENTS IF ORDERED. PLEASE CONTACT WOUND CARE NURSE FOR ANY QUESTION AND CHANGE OF WOUND CONDITION.
--- NOTE | 2022-10-26 10:28 | NUR ---
FABI RO FROM DR GRETCHEN CRAWLEY REVIEWED ABG RESULTS REJI CRAWLEY: BIPAP PRN DURING DAY; CONTINUE WITH BIPAP DURING NOC Addendum: 10/26/22 at 1108 by Raúl Alejandre RT BACL=BACK
[2022-10-26] MEDS: PANTOPRAZOLE 40 MG TABEC PO SCH (10:33)
[2022-10-26] MEDS: ISOSORBIDE MONONITRATE 30 MG TABER PO SCH ×2 (10:33→20:12)
[2022-10-26] MEDS: SERTRALINE 50 MG TAB PO SCH (10:34)
[2022-10-26] MEDS: SOTALOL 80 MG TAB PO SCH ×2 (10:34→20:11)
[2022-10-26] MEDS: VITAMIN D 400 IU TAB PO SCH (10:35)
[2022-10-26] MEDS: DILTIAZEM 30 MG TAB PO SCH ×2 (10:35→20:11)
[2022-10-26] MEDS: DOCUSATE SODIUM 100 MG GELCAP PO SCH (10:39)
[2022-10-26] MEDS: POTASSIUM CHLORIDE 10 MEQ TABER PO SCH (10:47)
--- NOTE | 2022-10-26 11:39 | NUR ---
HARDWOOD FLOOR INSTALLER AT BEDSIDE FOR PHYSICAL HYGIENE AND REPOSITION NO DISTRESS NOTED PIZZA COOK TO ATTEMPT HHN THERAPY AT A LATER TIME
[2022-10-26 12:00] VITALS: BP 134/64
[2022-10-26] MEDS ORDERED: ACETAZOLAMIDE SOD 250 MG TAB PO SCH (13:30)
[2022-10-26 16:00] VITALS: BP 111/73
--- NOTE | 2022-10-26 19:18 | NUR ---
ENDORSED PT TO SHOP COORDINATOR NURSE FOR CONTINUITY OF CARE. PT IN STABLE CONDITION.
[2022-10-26 20:00] VITALS: BP 114/64
--- NOTE | 2022-10-26 20:00 | NUR ---
PATIENT IN BED AWAKE , ALERT RESTING COMFORTABLY WITH O2 AT 3L NC SATING 98%. NO SOB. NO COMPLAINTS OF PAIN. DAUGHTERS AT BEDSIDE. HEAD OF BED ELEVATED. IV ACCESS ON THE RIGHT FOREARM. SAFETY MEASURES IN PLACE. CALL LIGHT WITHIN REACH.
[2022-10-26] MEDS: SIMVASTATIN 40 MG TAB PO SCH (20:11)
--- NOTE | 2022-10-26 20:11 | NUR ---
ALL SCHEDULED MEDICATIONS ADMINISTERED. TOLERATED WELL.
[2022-10-26] MEDS: AZITHROMYCIN 500 MG in DEXTROSE 5% 250 ML IV SCH (20:56)
[2022-10-27] VITALS: BP 129/84
[2022-10-27] MEDS: ALBUTEROL SULFATE/IPRATROPIU 3 ML SOL IH SCH ×4 (02:02→15:58)
[2022-10-27 04:00] VITALS: BP 121/55
[2022-10-27 05:29] LABS: ANION GAP 7.3 (8-16); BASOPHILS # (AUTO) 0.1 K/uL (0.00-0.22); BASOPHILS % (AUTO) 0.7 % (0.0-2.0); CARBON DIOXIDE 39.2 mmol/L (21-32); CHLORIDE 97 mmol/L (98-107); CREATININE 0.9 mg/dL (0.6-1.3); EOSINOPHILS # (AUTO) 0.1 K/uL (0-0.4); EOSINOPHILS % (AUTO) 1.7 % (0.0-4.0); GLUCOSE 111 mg/dL (74-106); HEMATOCRIT 38.3 % (36-48); LYMPHOCYTES # (AUTO) 1.4 K/uL (2.5-16.5); LYMPHOCYTES % (AUTO) 19.1 % (20.5-51.1); MEAN CORPUSCULAR HEMOGLOBIN 28 pg (27-31); MEAN CORPUSCULAR HGB CONC 31 g/dL (33-37); MEAN CORPUSCULAR VOLUME 88.2 fL (80-94); MONOCYTES # (AUTO) 0.6 K/uL (0.8-1.0); MONOCYTES % (AUTO) 8.6 % (1.7-9.3); NEUTROPHILS # (AUTO) 5.1 K/uL (1.8-7.7); NEUTROPHILS % (AUTO) 69.9 % (42.2-75.2); PLATELET COUNT (AUTO) 318 K/uL (140-450); POTASSIUM 3.5 mmol/L (3.5-5.1); RED BLOOD CELL COUNT(AUTO) 4.34 MIL/uL (4.20-5.40); RED CELL DISTRIBUTION WIDTH 14.3 % (11.6-13.7); SODIUM SERUM 140 mmol/L (136-145); UREA NITROGEN, BLOOD 23 mg/dL (7-18); WHITE BLOOD COUNT (AUTO) 7.3 K/uL (4.8-10.8)
[2022-10-27] MEDS: LEVOTHYROXINE 0.05 MG TAB PO SCH (05:42)
--- NOTE | 2022-10-27 07:28 | NUR ---
BEDSIDE ENDORSEMENT GIVEN TO DAY SHIFT NURSE BONI FOR CONTINUITY OF CARE.
[2022-10-27 08:00] VITALS: BP 134/52
--- NOTE | 2022-10-27 08:10 | NUR ---
RECEIVED PT AWAKE AND ALERT. ON 3L VIA NASAL CANNULA. SINUS RHYTHM ON MONITOR. ABD SOFT AND NONDISTENDED. CONTINENT BOWEL AND BLADDER. PERIPHERAL IV 22 GAUGE ON RIGHT FOREARM INTACT AND SALINE LOCKED. SAFETY PRECAUTIONS IN PLACE.
[2022-10-27] MEDS: POTASSIUM CHLORIDE 10 MEQ TABER PO SCH (08:58)
[2022-10-27] MEDS: PANTOPRAZOLE 40 MG TABEC PO SCH (08:58)
[2022-10-27] MEDS: DOCUSATE SODIUM 100 MG GELCAP PO SCH (08:58)
[2022-10-27] MEDS: DILTIAZEM 30 MG TAB PO SCH ×2 (08:59→20:35)
[2022-10-27] MEDS: RIVAROXABAN 15 MG TAB PO SCH (09:00)
[2022-10-27] MEDS: ISOSORBIDE MONONITRATE 30 MG TABER PO SCH ×2 (09:00→20:35)
[2022-10-27] MEDS: SERTRALINE 50 MG TAB PO SCH (09:00)
[2022-10-27] MEDS: VITAMIN D 400 IU TAB PO SCH (09:00)
[2022-10-27] MEDS: FUROSEMIDE 40 MG TAB PO SCH (09:00)
--- NOTE | 2022-10-27 09:00 | NUR ---
DR. MCFARLAND AT BEDSIDE EXAMINING PATIENT.
[2022-10-27] MEDS: SOTALOL 80 MG TAB PO SCH ×2 (09:01→20:34)
[2022-10-27 12:00] VITALS: BP 107/44
--- NOTE | 2022-10-27 13:35 | NUR ---
MADE ROUNDS. PT BREATHING EVEN AND UNLABORED. NO C/O PAIN. DAUGHTER AT BEDSIDE.
--- NOTE | 2022-10-27 15:25 | NUR ---
REVIEWED WITH DR. ANAHY RODRIGUEZ; HHN AND OXYGEN THERAPY VORBO DR. RODRIGUEZ: DC SCHEDULED HHN THERAPY PRN ONLY; OXYGEN SATURATION GREATER THAN 90% Addendum: 10/27/22 at 1702 by Raúl Alejandre RT JHOAN
--- NOTE | 2022-10-27 15:58 | NUR ---
SATURATION 97% ON SUPPLEMENTAL OXYGEN AT 3 LPM VIA NC POST HHN THERAPY TITRATED FIO2 TO 2 LPM BONI/RN NOTIFIED
[2022-10-27 16:00] VITALS: BP 128/60
[2022-10-27] MEDS ORDERED: ALBUTEROL SULFATE/IPRATROPIU 3 ML SOL IH PRN (16:50)
--- NOTE | 2022-10-27 19:20 | NUR ---
ENDORSED TO JEWELRY INSPECTOR NURSE DAVID FOR CONTINUITY OF CARE.
[2022-10-27 20:00] VITALS: BP 125/48
[2022-10-27] MEDS: SIMVASTATIN 40 MG TAB PO SCH (20:36)
[2022-10-27] MEDS: AZITHROMYCIN 500 MG in DEXTROSE 5% 250 ML IV SCH (21:29)
[2022-10-28] VITALS: BP 120/42
[2022-10-28 04:00] VITALS: BP 125/47
[2022-10-28] MEDS: LEVOTHYROXINE 0.05 MG TAB PO SCH (06:25)
[2022-10-28 06:47] LABS: BASOPHILS # (AUTO) 0.1 K/uL (0.00-0.22); BASOPHILS % (AUTO) 0.7 % (0.0-2.0); EOSINOPHILS # (AUTO) 0.2 K/uL (0-0.4); EOSINOPHILS % (AUTO) 2.2 % (0.0-4.0); HEMATOCRIT 38.5 % (36-48); HEMOGLOBIN 12.3 g/dL (12.0-16.0); LYMPHOCYTES # (AUTO) 1.2 K/uL (2.5-16.5); LYMPHOCYTES % (AUTO) 15.1 % (20.5-51.1); MEAN CORPUSCULAR HEMOGLOBIN 28 pg (27-31); MEAN CORPUSCULAR HGB CONC 32 g/dL (33-37); MONOCYTES # (AUTO) 0.6 K/uL (0.8-1.0); MONOCYTES % (AUTO) 8.4 % (1.7-9.3); NEUTROPHILS # (AUTO) 5.6 K/uL (1.8-7.7); NEUTROPHILS % (AUTO) 73.6 % (42.2-75.2); PLATELET COUNT (AUTO) 301 K/uL (140-450); RED BLOOD CELL COUNT(AUTO) 4.38 MIL/uL (4.20-5.40); RED CELL DISTRIBUTION WIDTH 14.9 % (11.6-13.7); WHITE BLOOD COUNT (AUTO) 7.6 K/uL (4.8-10.8)
--- NOTE | 2022-10-28 07:24 | NUR ---
TRANSFER OF CARE TO DAY SHIFT, REPORT GIVEN TO NANDA VIVAS
--- NOTE | 2022-10-28 07:25 | NUR ---
RECEIVED BEDSIDE REPORT FROM DAVID LANDSCAPING SUPERVISOR RN, FOR CONTINUITY OF CARE. PT AWAKE AND ALERT. TOGOLESE SPEAKING. BIPAP IN PLACE 28% O2, IPAP 12, EPAP 5. SPO2 97%. TOLERATING WELL, NO S/SX OF ACUTE DISTRESS. 22G IV TO R FA, SALINE LOCK. BOWEL SOUNDS HYPOACTIVE. MODERATE WEAKNESS THROUGHOUT. STANDARD PRECAUTION. DENIES PAIN OR DISCOMFORT. BED LOCKED AND IN LOWEST POSITION.
[2022-10-28 08:00] VITALS: BP 132/50
[2022-10-28] MEDS: POTASSIUM CHLORIDE 10 MEQ TABER PO SCH (08:31)
[2022-10-28] MEDS: SOTALOL 80 MG TAB PO SCH ×2 (08:32→20:06)
[2022-10-28] MEDS: RIVAROXABAN 15 MG TAB PO SCH (08:32)
[2022-10-28] MEDS: PANTOPRAZOLE 40 MG TABEC PO SCH (08:33)
[2022-10-28] MEDS: ISOSORBIDE MONONITRATE 30 MG TABER PO SCH ×2 (08:33→20:06)
[2022-10-28] MEDS: SERTRALINE 50 MG TAB PO SCH (08:33)
[2022-10-28] MEDS: DILTIAZEM 30 MG TAB PO SCH ×2 (08:33→20:05)
[2022-10-28] MEDS: DOCUSATE SODIUM 100 MG GELCAP PO SCH (08:34)
[2022-10-28] MEDS: VITAMIN D 400 IU TAB PO SCH (08:34)
[2022-10-28] MEDS: FUROSEMIDE 40 MG TAB PO SCH (08:34)
--- NOTE | 2022-10-28 08:38 | NUR ---
BiPAP WAS REMOVED AND PT WAS PLACED ON 3L NC. SATURATION WAS 96% AND PT WAS HAPPY TO HAVE MASK OFF.
--- NOTE | 2022-10-28 10:00 | NUR ---
DAUGHTER AT BEDSIDE.
--- NOTE | 2022-10-28 10:25 | NUR ---
SMALL BROWN BM AND LARGE URINE OUTPUT TO CHUX DIAPER. CLEANED, TURNED AND REPOSITIONED.
[2022-10-28 12:00] VITALS: BP 114/42
--- NOTE | 2022-10-28 12:30 | NUR ---
FAMILY AT BEDSIDE.
[2022-10-28 16:00] VITALS: BP 115/45
--- NOTE | 2022-10-28 18:00 | NUR ---
PT VOIDED, CLEANED, TURNED AND REPOSITIONED.
--- NOTE | 2022-10-28 19:19 | NUR ---
ENDORSED BEDSIDE REPORT TO MYRA CRIB PAD MAKER RN, FOR CONTINUITY OF CARE.
--- NOTE | 2022-10-28 19:20 | NUR ---
RECEIVED PT FROM MORNING SHIFT NURSE. PT IS BEDREST, A0X3-4, CHADIAN SPEAKING WITH RELATIVE ON BEDSIDE. PT HAS 3L NC AND ON CARDIAC DIET WITH 1200 ML FLUID RESTRICTION PER DAY. PT HAS IV ON RIGHT FOREARM GAUGE 22 SALINE LOCK. PT SKIN IS INTACT. NO COMPLAIN OF PAIN AT THIS TIME AND NO S/S OF RESPIRATORY DISTRESS NOTED. ALL SAFETY MEASURES IMPLEMENTED. BED IN LOW POSITION, BED WHEELS ON LOCK AND CALL LIGHT WITHIN REACH.
[2022-10-28 20:00] VITALS: BP 123/55
[2022-10-28] MEDS: SIMVASTATIN 40 MG TAB PO SCH (20:05)
[2022-10-28] MEDS: AZITHROMYCIN 500 MG in DEXTROSE 5% 250 ML IV SCH (20:06)
--- NOTE | 2022-10-28 22:00 | NUR ---
CALLED THE RT BECAUSE THE RELATIVE WANTS TO TALK REGARDING THE BIPAP.
[2022-10-28 22:17] LABS: ANION GAP 7.7 (8-16); CHLORIDE 98 mmol/L (98-107); GLUCOSE 92 mg/dL (74-106); POTASSIUM 3.7 mmol/L (3.5-5.1); SODIUM SERUM 140 mmol/L (136-145); UREA NITROGEN, BLOOD 25 mg/dL (7-18)
[2022-10-29] VITALS: BP 139/61
--- NOTE | 2022-10-29 | NUR ---
PT IS SLEEPING WITH BIPAP. CHEST RISE AND FALL SYMMETRICALLY NOTED. RESPIRATION IS EVEN AND UNLABORED. ALL SAFETY MEASURES IMPLEMENTED. BED IN LOW POSITION, BED WHEELS ON LOCK AND CALL LIGHT WITHIN REACH.
--- NOTE | 2022-10-29 02:00 | NUR ---
PT ASSISTED TO PEE. PT REMOVED THE BIPAP AND CALLED RT FOR THE SECUREMENT OF THE BIPAP. NO COMPLAIN OF PAIN NOTED. NO S/S OF RESPIRATORY DISTRESS. ALL SAFETY MEASURES IMPLEMENTED. BED IN LOW POSITION, BED WHEELS ON LOCK AND CALL LIGHT WITHIN REACH.
[2022-10-29 04:00] VITALS: BP 123/55
--- NOTE | 2022-10-29 04:00 | NUR ---
MORNING CARE WAS DONE TO PT. CHANGED PT'S GOWN, LINENS AND CHUCKS. NO S/S OF RESPIRATORY DISTRESS NOTED NO COMPLAIN OF PAIN. ALL SAFETY MEASURES IMPLEMENTED. BED IN LOW POSITION, BED WHEELS ON LOCK AND CALL LIGHT WITHIN REACH.
[2022-10-29] MEDS: LEVOTHYROXINE 0.05 MG TAB PO SCH (05:31)
--- NOTE | 2022-10-29 05:31 | NUR ---
SCHEDULED AND PRESCRIBED MEDICATION WAS GIVEN TO PT PER MD ORDER. RT ALSO REMOVED THE BIPAP BECAUSE PT IS ALREADY AWAKE. PT IS NOW SATING AT 99% WITH 3L NC. NO COMPLAIN OF PAIN NOTED. ALL SAFETY MEASURES IMPLEMENTED. BED IN LOW POSITION, BED WHEELS ON LOCK AND CALL LIGHT WITHIN REACH. Addendum: 10/29/22 at 0553 by Trinity Tomlinson RN WRONG DATA
--- NOTE | 2022-10-29 05:31 | NUR ---
SCHEDULED AND PRESCRIBED MEDICATION WAS GIVEN TO PT PER MD ORDER. RT ALSO REMOVED THE BIPAP BECAUSE PT IS ALREADY AWAKE. PT IS NOW SATING AT 99% WITH 2L NC. NO COMPLAIN OF PAIN NOTED. ALL SAFETY MEASURES IMPLEMENTED. BED IN LOW POSITION, BED WHEELS ON LOCK AND CALL LIGHT WITHIN REACH.
--- NOTE | 2022-10-29 05:40 | NUR ---
PT AWAKE AND ALERT PLACED BACK ON 2L NC
[2022-10-29 05:48] LABS: BASOPHILS % (AUTO) 0.3 % (0.0-2.0); EOSINOPHILS # (AUTO) 0.2 K/uL (0-0.4); EOSINOPHILS % (AUTO) 1.8 % (0.0-4.0); HEMATOCRIT 36.4 % (36-48); HEMOGLOBIN 11.7 g/dL (12.0-16.0); LYMPHOCYTES # (AUTO) 1.1 K/uL (2.5-16.5); LYMPHOCYTES % (AUTO) 12.8 % (20.5-51.1); MEAN CORPUSCULAR HEMOGLOBIN 28 pg (27-31); MEAN CORPUSCULAR HGB CONC 32 g/dL (33-37); MONOCYTES # (AUTO) 0.8 K/uL (0.8-1.0); MONOCYTES % (AUTO) 9.2 % (1.7-9.3); NEUTROPHILS # (AUTO) 6.7 K/uL (1.8-7.7); NEUTROPHILS % (AUTO) 75.9 % (42.2-75.2); PLATELET COUNT (AUTO) 333 K/uL (140-450); RED BLOOD CELL COUNT(AUTO) 4.14 MIL/uL (4.20-5.40); WHITE BLOOD COUNT (AUTO) 8.8 K/uL (4.8-10.8)
[2022-10-29 06:13] LABS: ANION GAP 6.7 (8-16); CARBON DIOXIDE 38.1 mmol/L (21-32); CHLORIDE 99 mmol/L (98-107); CREATININE 0.9 mg/dL (0.6-1.3); GLUCOSE 108 mg/dL (74-106); POTASSIUM 3.8 mmol/L (3.5-5.1); SODIUM SERUM 140 mmol/L (136-145); UREA NITROGEN, BLOOD 19 mg/dL (7-18)
--- NOTE | 2022-10-29 07:27 | NUR ---
PT IS STABLE. ENDORSED PT TO MORNING SHIFT NURSE FOR CONTINUITY OF CARE.
[2022-10-29 08:00] VITALS: BP 125/56
--- NOTE | 2022-10-29 08:00 | NUR ---
ASSESSMENT COMPLETED PLAN OF CARE REVIEWED DAUGHTER IN AT BEDSIDE UPDATED ON PLAN NO DISTRESS NOTED AT THIS TIME WILL CONTINUE TO MONITOR AND ASSESSS
[2022-10-29] MEDS: SOTALOL 80 MG TAB PO SCH ×2 (08:33→20:39)
[2022-10-29] MEDS: VITAMIN D 400 IU TAB PO SCH (08:33)
[2022-10-29] MEDS: ISOSORBIDE MONONITRATE 30 MG TABER PO SCH ×2 (08:33→20:39)
[2022-10-29] MEDS: POTASSIUM CHLORIDE 10 MEQ TABER PO SCH (08:33)
[2022-10-29] MEDS: DILTIAZEM 30 MG TAB PO SCH ×2 (08:33→20:40)
[2022-10-29] MEDS: DOCUSATE SODIUM 100 MG GELCAP PO SCH (08:33)
[2022-10-29] MEDS: FUROSEMIDE 40 MG TAB PO SCH (08:33)
[2022-10-29] MEDS: RIVAROXABAN 15 MG TAB PO SCH (08:34)
[2022-10-29] MEDS: PANTOPRAZOLE 40 MG TABEC PO SCH (08:34)
[2022-10-29] MEDS: SERTRALINE 50 MG TAB PO SCH (08:35)
[2022-10-29 12:00] VITALS: BP 145/67
--- NOTE | 2022-10-29 13:35 | NUR ---
10/29/22 RD INITIAL ASSESSMENT COMPLETED. PLEASE REFER TO NUTRITION ASSESSMENT UNDER CARE ACTIVITY FOR ESTIMATED NUTRITIONAL NEEDS. 1. CONTINUE CARDIAC DIET TOLERATED 2. MONITOR PO INTAKE 3. PROVIDED FLUID RESTRICTED DIET EDUCATION WITH HANDOUT 4. RD TO FOLLOW-UP 3-5 DAYS, MODERATE RISK CLAU CARPENTER, ANSHU
[2022-10-29 16:00] VITALS: BP 128/47
--- NOTE | 2022-10-29 16:39 | NUR ---
PHYSICAL THERAPY CO-SIGN The Physical Therapy Progress Notes documented by Top Waddy have been reviewed. Reviewed/Co-Signed by: Qian Santos Documentation Done by: TONO MALONE PTA Addendum: 10/29/22 at 1639 by Qian Santos PT Amended: Links added.
--- NOTE | 2022-10-29 19:00 | NUR ---
NO SIGNIFICANT CHANGES WILL ENDORSE CARE TO ONCOMING RN
[2022-10-29 20:00] VITALS: BP 125/70
--- NOTE | 2022-10-29 20:00 | NUR ---
RECEIVED REPORT FROM DAY NURSE FOR CONTINUITY OF CARE. RECEIVED PATIENT SITTING UPRIGHT IN BED, FAMILY AT THE BEDSIDE. PATIENT DENIES ANY PAIN, CHEST PAIN, SOB, PALPITATIONS AND DIZZINESS. PT A/A/OX3, [place] SPEAKING ONLY. FAMILY AIDE WITH THE TRANSLATION. NOT IN ANY DISTRESS. VSS, AFEBRILE, SATING 99% ON 3L/NC. SR ON TELE, HR-64. FALL PRECAUTION IMPLEMENTED. INSTRUCTED NOT TO GET OUT OF BED WITHOUT ASSISTANCE. PATIENT VERBALIZED UNDERSTANDING. CALL LIGHT WITHIN REACH. WILL CONTINUE POC AND MONITORING.
[2022-10-29] MEDS: SIMVASTATIN 40 MG TAB PO SCH (20:40)
--- NOTE | 2022-10-29 22:00 | NUR ---
ADMINISTERED ALL THE SCHEDULED MEDICATIONS EARLIER AND PT TOLERATED IT WELL . NO ADVERSE DRUG REACTION NOTED AND NO COMPLAIN FROM THE PATIENT. WILL CONTINUE POC.
[2022-10-30] VITALS: BP 141/69
--- NOTE | 2022-10-30 | NUR ---
VITAL SIGNS STABLE, AFEBRILE, SATING 99% ON BIPAP. SR ON TELE , HR-63. NO COMPLAIN OF PAIN AT THIS TIME AND NOT IN ANY DISTRESS.
--- NOTE | 2022-10-30 02:00 | NUR ---
PATIENT ASLEEP AT THIS TIME. VISIBLE CHEST RISE AND FALL NOTED. PT NOT IN ANY DISTRESS. SAFETY MEASURES IN PLACED.WILL CONTINUE MONITORING.
[2022-10-30 04:00] VITALS: BP 141/65
--- NOTE | 2022-10-30 04:00 | NUR ---
PATIENT VITAL SIGNS STABLE, AFEBRILE,S ATING 96% ON BIPAP SETTING. NOT IN ANY DISTRESS AND NO COMPLAIN AT THIS TIME. SR ON TELE, HR-61.
[2022-10-30 05:50] LABS: BASOPHILS % (AUTO) 0.3 % (0.0-2.0); EOSINOPHILS # (AUTO) 0.1 K/uL (0-0.4); EOSINOPHILS % (AUTO) 1.6 % (0.0-4.0); HEMATOCRIT 35.6 % (36-48); HEMOGLOBIN 11.4 g/dL (12.0-16.0); LYMPHOCYTES # (AUTO) 1.2 K/uL (2.5-16.5); LYMPHOCYTES % (AUTO) 14.3 % (20.5-51.1); MEAN CORPUSCULAR HEMOGLOBIN 28 pg (27-31); MEAN CORPUSCULAR HGB CONC 32 g/dL (33-37); MEAN CORPUSCULAR VOLUME 88.2 fL (80-94); MONOCYTES # (AUTO) 0.8 K/uL (0.8-1.0); MONOCYTES % (AUTO) 8.7 % (1.7-9.3); NEUTROPHILS # (AUTO) 6.5 K/uL (1.8-7.7); NEUTROPHILS % (AUTO) 75.1 % (42.2-75.2); PLATELET COUNT (AUTO) 338 K/uL (140-450); RED BLOOD CELL COUNT(AUTO) 4.04 MIL/uL (4.20-5.40); RED CELL DISTRIBUTION WIDTH 14.7 % (11.6-13.7); WHITE BLOOD COUNT (AUTO) 8.7 K/uL (4.8-10.8)
[2022-10-30 06:25] LABS: ANION GAP 7.4 (8-16); CARBON DIOXIDE 37.6 mmol/L (21-32); CHLORIDE 99 mmol/L (98-107); CREATININE 0.8 mg/dL (0.6-1.3); GLUCOSE 124 mg/dL (74-106); SODIUM SERUM 140 mmol/L (136-145); UREA NITROGEN, BLOOD 16 mg/dL (7-18)
[2022-10-30] MEDS: LEVOTHYROXINE 0.05 MG TAB PO SCH (06:37)
--- NOTE | 2022-10-30 07:39 | NUR ---
ENDORSED PATIENT TO DAY NURSE FOR CONTINUITY OF CARE. PATIENT STABLE AND NOT IN ANY DISTRESS. SIGNING OFF.
--- NOTE | 2022-10-30 07:40 | NUR ---
RECEIVED REPORT FROM RN ISABEL FOR CONTINUITY OF CARE. PT AWAKE IN BED. RESPIRATIONS EVEN AND UNLABORED ON 3L NC. NO DISTRESS NOTED. DENIES PAIN. ON TRAFFIC WORKER. SKIN INTACT, WARM AND DRY TO TOUCH. IV SITE ON RFA G221, SL. CALL LIGHT WITHIN REACH. SAFETY PRECAUTIONS IN PLACE.
--- NOTE | 2022-10-30 07:48 | NUR ---
ROUNDED ON PT NO DISTRESS NOTED. PT RESTING COMFORTABLY.
[2022-10-30 08:00] VITALS: BP 120/47
[2022-10-30] MEDS: SOTALOL 80 MG TAB PO SCH ×2 (08:39→21:39)
[2022-10-30] MEDS: DOCUSATE SODIUM 100 MG GELCAP PO SCH (08:39)
[2022-10-30] MEDS: PANTOPRAZOLE 40 MG TABEC PO SCH (08:40)
[2022-10-30] MEDS: VITAMIN D 400 IU TAB PO SCH (08:40)
[2022-10-30] MEDS: SERTRALINE 50 MG TAB PO SCH (08:40)
[2022-10-30] MEDS: ISOSORBIDE MONONITRATE 30 MG TABER PO SCH ×2 (08:41→21:40)
[2022-10-30] MEDS: POTASSIUM CHLORIDE 10 MEQ TABER PO SCH (08:41)
[2022-10-30] MEDS: FUROSEMIDE 40 MG TAB PO SCH (08:41)
[2022-10-30] MEDS: DILTIAZEM 30 MG TAB PO SCH ×2 (08:42→21:39)
--- NOTE | 2022-10-30 08:42 | NUR ---
ADMINISTERED DUE MEDS. PT TOLERATED WELL.
[2022-10-30] MEDS: RIVAROXABAN 15 MG TAB PO SCH (08:43)
--- NOTE | 2022-10-30 09:33 | NUR ---
PT CHECKED AND SEEN BY DR MOLINA.
--- NOTE | 2022-10-30 10:00 | NUR ---
DISCHARGE PLANNING PATIENT IS A 82 YEAR OLD FEMALE ADMITTED TO THE [facility]/ED ON 10/24/2022 DUE TO PNEUMONIA. SW MEET WITH PATIENT AT BEDSIDE TO DISCUSS AND GATHER HER COLLATERAL INFORMATION. PATIENT WAS AWAKE AND ABLE TO PROVIDE HER OWN INFORMATION. PER PATIENT SHE LIVES AT HOME WITH HER ADULT DAUGTHER AND HER ADULT GRANDSON IN THEIR [place] IN [facility]. PER PATIENT HER DAUGHTER IS HER EMERGENCY CONTACT AND MEDICAL DECISION MAKER. PATIENT DO NOT HAVE ADVANCE DIRECTIVES IN PLACE. AND ASKED FOR INF. FORMS PROVIDED BY [facility]. PER PATIENT HER PCP IS Dr. COULTER AND HER LAST VISIT WAS ABOUT A MONTH AGO. SW DISCUSSED WITH PATIENT OF THE IMPORTANCE OF MAKING A FOLLOW UP APPOINTMENT AND SHE DECLINED FOR SW TO MAKE IT. STATED THAT HER DAUGHTER WILL MAKE IT FOR HER. WHEN SHE DISCHARGES. PATIENT REPORTED THAT SHE HAS NO ISSUES WITH MEDICATIONS AND SHE GETS THEM FROM THE [facility] IN [place]. PATIENT ALSO REPORTED THAT SHE HAS NO DME AT HOME. AND WILL LIKE TO DISCHARGE HOME WHEN SHE IS READY AND STABLE TO DISCHARGE. PATIENT IS NOT OPEN FOR MD RECOMMENDATION TO SNF. SW THANKED PATIENT FOR ALL THE INFORMATION PROVIDED AND ENDED THE VISIT. [facility]/CM WILL FOLLOW UP NEEDED.
[2022-10-30 12:00] VITALS: BP 121/48
--- NOTE | 2022-10-30 13:48 | NUR ---
Patient's Plan of Care was discussed and reviewed with ARCHEOLOGY FACULTY MEMBER:
--- NOTE | 2022-10-30 15:49 | NUR ---
PHYSICAL THERAPY CO-SIGN The Physical Therapy Progress Notes documented by Correctional Officer Captain have been reviewed. Reviewed/Co-Signed by: Qian Santos Documentation Done by: TONO MALONE PTA Addendum: 10/30/22 at 1549 by Qian Santos PT Amended: Links added.
[2022-10-30 16:00] VITALS: BP 120/41
--- NOTE | 2022-10-30 16:06 | NUR ---
PT AWAKE IN BED WITH FAMILY MEMBER AT BEDSIDE. NO DISTRESS NOTED. NO COMPLAINTS OF PAIN. WILL CONTINUE TO MONITOR.
--- NOTE | 2022-10-30 19:20 | NUR ---
ENDORSED PT TO INSOLE AND HEEL STIFFENER NURSE FINESSE FOR CONTINUITY OF CARE. PAGED MD REGARDING DC ROCEPHIN. ASKED MD IF ROCEPHIN NEEDS TO BE RENEWED. NO RESPONSE YET FROM MD, ENDORSED TO INSOLE AND HEEL STIFFENER NURSE. ALL NEEDS MET THROUGHOUT SHIFT. PT IS STABLE.
--- NOTE | 2022-10-30 19:21 | NUR ---
RECD. RESTING IN BED, AWAKE, A/OX3. RESPIRATION EVEN AND UNLABORED. ON 02 AT 2 LITERS VIA N/C, 02 SAT 98%. IV OF NS AT TKO INFUSING AT 5 ML/HR, RIGHT FOREARM G24. ABLE TO VERBALIZED NEEDS. SAFETY MEASURES ENFORCED. BED IN THE LOWEST POSITION, SIDE RAILS UP, CALL LIGHT IN REACH. ON IV ANTIBIOTICS. DENIES PAIN 0/10. FAMILY AT BEDSIDE.
[2022-10-30 20:00] VITALS: BP 135/49
[2022-10-30] MEDS: SIMVASTATIN 40 MG TAB PO SCH (21:40)
--- NOTE | 2022-10-30 21:40 | NUR ---
RESTING COMFORTABLY IN BED, SCHEDULED MEDICATIONS FOR THE NIGHT ADMINISTERED, TOLERATED WELL.
--- NOTE | 2022-10-30 21:50 | NUR ---
CALLED RT TO PUT PATIENT ON BIPAP.
[2022-10-30] MEDS ORDERED: cefTRIAXone 1,000 MG VIAL ONE (22:08)
--- NOTE | 2022-10-30 22:15 | NUR ---
COMFORTABLY SLEEPING ON BED, ON BIPAP. 02 SATURATION - 98%.
[2022-10-31] VITALS: BP 128/48
--- NOTE | 2022-10-31 | NUR ---
RESTING COMFORTABLY IN BED, NO APPARENT DISTRESS NOTED.
--- NOTE | 2022-10-31 02:00 | NUR ---
STILL SLEEPING COMFORTABLY, BIPAP ON. 02 SAT - 98%.
[2022-10-31 04:00] VITALS: BP 131/65
--- NOTE | 2022-10-31 04:00 | NUR ---
STILL SLEEPING WITH BIPAP ON. 02 SAT - 98%.
--- NOTE | 2022-10-31 05:30 | NUR ---
ASSISTED TO VOID USING THE BEDPAN. VOIDED 200 ML OF CLEAR YELLOW URINE.
[2022-10-31 05:56] LABS: BASOPHILS % (AUTO) 0.6 % (0.0-2.0); EOSINOPHILS # (AUTO) 0.2 K/uL (0-0.4); EOSINOPHILS % (AUTO) 2.2 % (0.0-4.0); HEMATOCRIT 34.1 % (36-48); HEMOGLOBIN 10.9 g/dL (12.0-16.0); LYMPHOCYTES # (AUTO) 1.3 K/uL (2.5-16.5); MEAN CORPUSCULAR HEMOGLOBIN 28 pg (27-31); MEAN CORPUSCULAR HGB CONC 32 g/dL (33-37); MEAN CORPUSCULAR VOLUME 88.3 fL (80-94); MONOCYTES # (AUTO) 0.7 K/uL (0.8-1.0); NEUTROPHILS # (AUTO) 5.4 K/uL (1.8-7.7); NEUTROPHILS % (AUTO) 71.2 % (42.2-75.2); PLATELET COUNT (AUTO) 355 K/uL (140-450); RED BLOOD CELL COUNT(AUTO) 3.86 MIL/uL (4.20-5.40); RED CELL DISTRIBUTION WIDTH 14.8 % (11.6-13.7); WHITE BLOOD COUNT (AUTO) 7.5 K/uL (4.8-10.8)
[2022-10-31 06:22] LABS: ANION GAP 7.7 (8-16); CARBON DIOXIDE 39.2 mmol/L (21-32); CHLORIDE 99 mmol/L (98-107); CREATININE 0.8 mg/dL (0.6-1.3); GLUCOSE 104 mg/dL (74-106); POTASSIUM 3.9 mmol/L (3.5-5.1); SODIUM SERUM 142 mmol/L (136-145); UREA NITROGEN, BLOOD 14 mg/dL (7-18)
[2022-10-31] MEDS: LEVOTHYROXINE 0.05 MG TAB PO SCH (06:55)
--- NOTE | 2022-10-31 07:20 | NUR ---
CONDITION REMAIN STABLE. STILL SLEEPING WITH BIPAP ON. ENDORSED TO AM SHIFT NURSE FOR CONTINUITY OF CARE.
--- NOTE | 2022-10-31 07:21 | NUR ---
RECEIVED REPORT FROM SPORTS COMMENTATOR NURSE FOR CONTINUITY OF CARE. PT SLEEPING, WITH BIPAP SATTING AT 99%. NO DISTRESS NOTED. RESPIRATIONS EVEN AND UNLABORED. ON MANAGER PROCESS IMPROVEMENT. CALL LIGHT WITHIN REACH. SAFETY PRECAUTIONS IN PLACE.
[2022-10-31 08:00] VITALS: BP 152/62
--- NOTE | 2022-10-31 08:00 | NUR ---
Patient's Plan of Care was discussed and reviewed with RN CARDIOVASCULAR ICU:
[2022-10-31] MEDS: SOTALOL 80 MG TAB PO SCH ×2 (09:02→20:40)
[2022-10-31] MEDS: SERTRALINE 50 MG TAB PO SCH (09:02)
[2022-10-31] MEDS: ISOSORBIDE MONONITRATE 30 MG TABER PO SCH ×2 (09:03→20:41)
[2022-10-31] MEDS: FUROSEMIDE 40 MG TAB PO SCH (09:03)
[2022-10-31] MEDS: VITAMIN D 400 IU TAB PO SCH (09:03)
[2022-10-31] MEDS: RIVAROXABAN 15 MG TAB PO SCH (09:06)
[2022-10-31] MEDS: DILTIAZEM 30 MG TAB PO SCH ×2 (09:07→20:40)
[2022-10-31] MEDS: POTASSIUM CHLORIDE 10 MEQ TABER PO SCH (09:07)
[2022-10-31] MEDS: PANTOPRAZOLE 40 MG TABEC PO SCH (09:07)
[2022-10-31] MEDS: DOCUSATE SODIUM 100 MG GELCAP PO SCH (09:07)
--- NOTE | 2022-10-31 09:19 | NUR ---
AM MEDS GIVEN. TOLERATING WELL.
--- NOTE | 2022-10-31 10:35 | NUR ---
PT CHECKED AND SEEN BY DR MOLINA.
[2022-10-31 12:00] VITALS: BP 134/55
--- NOTE | 2022-10-31 12:39 | NUR ---
PT SITTING IN BED. EATING LUNCH, WITH FAMILY MEMBER AT BEDSIDE. NO DISTRESS NOTED. SAFETY PRECAUTIONS IN PLACE.
--- NOTE | 2022-10-31 14:39 | NUR ---
ENDORSED PT TO NANDA DUNBAR FOR CONTINUITY OF CARE. PT IS IN STABLE CONDITION.
[2022-10-31 16:00] VITALS: BP 129/46
--- NOTE | 2022-10-31 19:30 | NUR ---
Patient's Plan of Care was discussed and reviewed with KATHIE KILPATRICK
--- NOTE | 2022-10-31 19:37 | NUR ---
ENDORSE PATIENT TO PM SHIFT NURSE W/ STABLE CONDITION KATARZYNA NAVAS, GAVIO. PENDING BIPAP FOR HOME USING
--- NOTE | 2022-10-31 19:38 | NUR ---
RECD. RESTING IN BED, AWAKE, A/OX4. RESPIRATION EVEN AND UNLABORED. IV OF NS INFUSING AT TKO, 5 ML/HR, RIGHT FOREARM G22. CONVERSING OCCASIONALLY WITH FAMILY AT THE BEDSIDE. DENIES PAIN 0/10.
[2022-10-31 20:00] VITALS: BP 141/48
--- NOTE | 2022-10-31 20:40 | NUR ---
COMPLAINT LAST BM WAS OCT 29, OFFERED PRUNE JUICE BUT REFUSED. AGREED TO TAKE PRN COLACE AND IF STILL NO BM TONIGHT PER DAUGHTER, WANTS DULCOLAX SUPPOSITORY TOMORROW.
[2022-10-31] MEDS: SIMVASTATIN 40 MG TAB PO SCH (20:42)
--- NOTE | 2022-10-31 20:42 | NUR ---
TYLENOL GIVEN WITH SCHEDULED NIGHT MEDICATIONS FOR HEADACHE BUT WAS UNABLE TO SCAN MEDICATION. Addendum: 11/01/22 at 0639 by Payal Dowd LVN MEDICATION WAS SCANNED AT 0635, WAS NOT SCAN AT 2041 WITH THE NIGHT MEDICATIONS.
--- NOTE | 2022-10-31 21:30 | NUR ---
INFORMED RT PATIENT IS READY FOR BIPAP.
--- NOTE | 2022-10-31 22:00 | NUR ---
SLEEPING COMFORTABLY, BIPAP ON. 02 SAT - 98%.
[2022-11-01] VITALS: BP 130/53
--- NOTE | 2022-11-01 | NUR ---
CHECKED PATIENT, NO SOB NOTED, 02 SAT - 99%.
[2022-11-01 04:00] VITALS: BP 145/52
--- NOTE | 2022-11-01 04:00 | NUR ---
ASSISTED WITH BEDPAN TO VOID AND CLEANSED. MADE COMFORTABLE IN BED WITH WARM BLANKETS.
[2022-11-01] MEDS: LEVOTHYROXINE 0.05 MG TAB PO SCH (06:43)
--- NOTE | 2022-11-01 07:15 | NUR ---
ENDORSED TO AM SHIFT NURSE FOR CONTINUITY OF CARE.
--- NOTE | 2022-11-01 07:16 | NUR ---
RECEIVED REPORT FROM OUTBOUND SALES ADVISOR NURSE FINESSE FOR CONTINUITY OF CARE. PT AWAKE IN BED. NO DISTRESS NOTED, ON 2L NC. DENIES PAIN. CALL LIGHT WITHIN REACH. SAFETY PRECAUTIONS IN PLACE.
[2022-11-01 08:00] VITALS: BP 144/46
--- NOTE | 2022-11-01 08:00 | NUR ---
Patient's Plan of Care was discussed and reviewed with KATHIE: SATHISH
--- NOTE | 2022-11-01 08:15 | NUR ---
REMOVED FROM CPAP MODE VIA BIPAP TO MASK AT THIS TIME PLACED ON SUPPLEMENTAL OXYGEN AT 2 LPM VIA NC
[2022-11-01] MEDS: RIVAROXABAN 15 MG TAB PO SCH (09:19)
[2022-11-01] MEDS: ISOSORBIDE MONONITRATE 30 MG TABER PO SCH ×2 (09:20→20:23)
[2022-11-01] MEDS: DILTIAZEM 30 MG TAB PO SCH ×2 (09:20→20:23)
--- NOTE | 2022-11-01 09:20 | NUR ---
AM MEDICATIONS GIVEN. TOLERATING WELL.
[2022-11-01] MEDS: VITAMIN D 400 IU TAB PO SCH (09:21)
[2022-11-01] MEDS: FUROSEMIDE 40 MG TAB PO SCH (09:21)
[2022-11-01] MEDS: POTASSIUM CHLORIDE 10 MEQ TABER PO SCH (09:22)
[2022-11-01] MEDS: SERTRALINE 50 MG TAB PO SCH (09:22)
[2022-11-01] MEDS: PANTOPRAZOLE 40 MG TABEC PO SCH (09:22)
[2022-11-01] MEDS: DOCUSATE SODIUM 100 MG GELCAP PO SCH (09:22)
[2022-11-01] MEDS: SOTALOL 80 MG TAB PO SCH ×2 (09:23→20:23)
[2022-11-01] MEDS ORDERED: bisacodyL 10 MG SUPP RC SCH (09:30)
--- NOTE | 2022-11-01 10:18 | NUR ---
SEEN BY DR. MCFARLAND.
--- NOTE | 2022-11-01 10:20 | NUR ---
RT AT BEDSIDE. PLACED PT AT RA. PT CLOSELY MONITORED.
--- NOTE | 2022-11-01 10:20 | NUR ---
REMOVED FROM SUPPLEMENTAL OXYGEN FOR ROOM AIR TRIAL DISASSEMBLER PRODUCT TO MONITOR
[2022-11-01 12:00] VITALS: BP 144/45
--- NOTE | 2022-11-01 12:57 | NUR ---
Discharge Planning SW send patient's order and clinical information for patient to get evaluated for 02 equipment. Faxed request to [facility] [phone] with a completed conformation at about 12:53. SW/CM will follow up as needed.
--- NOTE | 2022-11-01 13:28 | NUR ---
PT HAD LARGE BM AND 1X URINE. CLEANED AND CHANGED PT DIAPER WITH ANOTHER NURSE. PT REMAINED AND CLEAN AND DRY. ON RA, SATTING AT 92%.
--- NOTE | 2022-11-01 14:20 | NUR ---
STABLE RESTING IN BED NO DISTRESS NOTED GOOD CHEST RISE AIRWAY PATENT SATURATION 95% ON ROOM AIR
--- NOTE | 2022-11-01 15:00 | NUR ---
ENDORSED BY NURSE SINGH THAT PT WAS DESATTING TO 86-88% AFTER THE PT USED THE BEDPAN. PT WAS PLACED BACK TO 2L, NC. PT NOW SATTING AT 99%. NO DISTRESS NOTED. NO C/O OF PAIN AND SOB. PT CLOSELY MONITORED.
[2022-11-01 16:00] VITALS: BP 132/78
--- NOTE | 2022-11-01 19:25 | NUR ---
GAVE BEDSIDE REPORT TO FINISHER FIBERGLASS BOAT PARTS NURSE RIAZA FOR CONTINUITY OF CARE. ALL NEEDS MET THROUGHOUT SHIFT. PT IS STABLE.
--- NOTE | 2022-11-01 19:30 | NUR ---
RECEIVED BEDSIDE REPORT FROM DAY SHIFT KATHIE MENG FOR CONTINUITY OF CARE. PT IS ALERT AND ORIENTATED BULGARIAN SPEAKER. PT IS ON 2L NC SATING 98%. PT HAS RIGHT FOREARM 22 GAUGE SALINE LOCK. FAMILY BY BEDSIDE. PT NOT IN ANY DISTRESS. NO COMPLAINS. WILL CONTINUE TO MONITOR THE PT.
[2022-11-01 20:00] VITALS: BP 133/60
[2022-11-01] MEDS: SIMVASTATIN 40 MG TAB PO SCH (20:24)
--- NOTE | 2022-11-01 20:25 | NUR ---
SCHEDULE MEDICATION GIVEN. NO ADVERSE REACTION NOTED. WILL CONTINUE TO MONITOR THE PT.
--- NOTE | 2022-11-01 23:37 | NUR ---
PT LAYING IN BED IN SUPINE POSITION, HOB ELEVATED, NO SIGNS OF RESPIRATORY DISTRESS NOTED AT THIS TIME PT IS CURRENT SPO2 99% ON 2L N/C, NO LABORED BREATHING AND NO USE OF ACCESSORY MUSCLES NOTED. ANTERIOR AUSCULTATIONS REVEALED CLEAR BS THROUGHOUT ALL LUNG [place], MODERATE NON PRODUCTIVE COUGH NOTED, PT REFUSED TO GO ON BIPAP AT THIS TIME BECAUSE SHE IS NOT READY TO GO TO SLEEP. I NOTIFIED PT THAT SHE CAN CALL WHEN SHE IS READY TO GO ON BIPAP RN IS AWARE I WILL CONTINUE TO MONITOR.
[2022-11-02] VITALS: BP 142/69
--- NOTE | 2022-11-02 | NUR ---
VITAL SIGNS TAKEN AND STABLE. PT NOT IN ANY ACUTE DISTRESS. BREATHING EVEN AND UNLABORED. WILL CONTINUE TO MONITOR THE PT.
--- NOTE | 2022-11-02 03:35 | NUR ---
PT IS SLEEPING COMFORTABLY IN BED. PT IS ON NC 2L SATING 100%. PT NOT IN ANY RESPIRATORY DISTRESS. BREATHING EVEN AND UNLABORED. WILL CONTINUE TO MONITOR THE PT.
[2022-11-02 04:00] VITALS: BP 133/61
[2022-11-02 04:50] VITALS: BP 133/61
[2022-11-02] MEDS: LEVOTHYROXINE 0.05 MG TAB PO SCH (06:39)
--- NOTE | 2022-11-02 07:25 | NUR ---
ENDORSED PT TO DAY SHIFT RN FOR CONTINUITY OF CARE. PT IS STABLE.
--- NOTE | 2022-11-02 07:26 | NUR ---
RECEIVED REPORT FROM MONEY MANAGER NURSE RAIZA FOR CONTINUITY OF CARE. PT AWAKE ON 2L, NC. NO DISTRESS NOTED. DENIES PAIN. ON FOOD MOBILE DRIVER. CALL LIGHT WITHIN REACH. SAFETY PRECAUTIONS IN PLACE.
[2022-11-02 08:00] VITALS: BP 141/67
[2022-11-02] MEDS: RIVAROXABAN 15 MG TAB PO SCH (09:52)
[2022-11-02] MEDS: DOCUSATE SODIUM 100 MG GELCAP PO SCH (09:52)
[2022-11-02] MEDS: POTASSIUM CHLORIDE 10 MEQ TABER PO SCH (09:53)
[2022-11-02] MEDS: SOTALOL 80 MG TAB PO SCH (09:53)
[2022-11-02] MEDS: ISOSORBIDE MONONITRATE 30 MG TABER PO SCH (09:53)
[2022-11-02] MEDS: SERTRALINE 50 MG TAB PO SCH (09:53)
[2022-11-02] MEDS: VITAMIN D 400 IU TAB PO SCH (09:54)
[2022-11-02] MEDS: PANTOPRAZOLE 40 MG TABEC PO SCH (09:54)
[2022-11-02] MEDS: DILTIAZEM 30 MG TAB PO SCH (09:54)
[2022-11-02] MEDS: FUROSEMIDE 40 MG TAB PO SCH (09:54)
--- NOTE | 2022-11-02 10:04 | NUR ---
ADMINISTERED DUE MEDS. PT TOLERATED WELL.
[2022-11-02 11:03] VITALS: BP 141/67
--- NOTE | 2022-11-02 11:43 | NUR ---
PER AC SETH, BIPAP WILL BE DELIVERED TO PT'S HOME ADDRESS AND SISTER YOKASTA WILL GET THE PHONE CALL. INFORMED PT'S DAUGHTER. PT AWARE.
--- NOTE | 2022-11-02 12:30 | NUR ---
PT DC HOME. PT DAUGHTER AT BEDSIDE TO PICK-UP PT. DC PAPERS DISCUSSED WITH THE PT AND DAUGHTER. REMOVED IV CATHETER INTACT. REMOVED ID [id number]. PT'S HOME O2, DELIVERED LAST NIGHT AND AT BEDSIDE. EDUCATED PT AND DAUGHTER HOW TO USE HOME O2, VERBALIZED UNDERSTANDING. ALL BELONGINGS TAKEN UPON DC. PT IS IN STABLE CONDITION.
== END 2022-11-02 12:30 | disposition home or self-care (01) | DRG 193 ==
LOC: MED 21:41 → MTU 10-24 00:59 → MMU 10-24 02:14
PROVIDERS: ADMIT Student in an Organized Health Care Education/Training Program; ATTEND Student in an Organized Health Care Education/Training Program
PROC: 5A09357 Assistance with Respiratory Ventilation, Less than 24 Consecutive Hours, Continuous Positive Airway Pressure (ICD-10-PCS; principal; 2022-10-25)
PROC: 5A09357 Assistance with Respiratory Ventilation, Less than 24 Consecutive Hours, Continuous Positive Airway Pressure (ICD-10-PCS; 2022-10-26)
PROC: 5A09357 Assistance with Respiratory Ventilation, Less than 24 Consecutive Hours, Continuous Positive Airway Pressure (ICD-10-PCS; 2022-10-27)
PROC: 5A09357 Assistance with Respiratory Ventilation, Less than 24 Consecutive Hours, Continuous Positive Airway Pressure (ICD-10-PCS; 2022-10-28)
PROC: 5A09357 Assistance with Respiratory Ventilation, Less than 24 Consecutive Hours, Continuous Positive Airway Pressure (ICD-10-PCS; 2022-10-29)
PROC: 5A09357 Assistance with Respiratory Ventilation, Less than 24 Consecutive Hours, Continuous Positive Airway Pressure (ICD-10-PCS; 2022-10-30)
PROC: 5A09357 Assistance with Respiratory Ventilation, Less than 24 Consecutive Hours, Continuous Positive Airway Pressure (ICD-10-PCS; 2022-10-31)
PROC: 5A09357 Assistance with Respiratory Ventilation, Less than 24 Consecutive Hours, Continuous Positive Airway Pressure (ICD-10-PCS; 2022-11-01)
DX: J18.9 Pneumonia, unspecified organism (principal); I50.33 Acute on chronic diastolic (congestive) heart failure; J96.01 Acute respiratory failure with hypoxia; J96.02 Acute respiratory failure with hypercapnia; E44.1 Mild protein-calorie malnutrition; N39.0 Urinary tract infection, site not specified; E87.0 Hyperosmolality and hypernatremia; J44.1 Chronic obstructive pulmonary disease with (acute) exacerbation; I42.9 Cardiomyopathy, unspecified; I11.0 Hypertensive heart disease with heart failure; E03.9 Hypothyroidism, unspecified; Z68.35 Body mass index [BMI] 35.0-35.9, adult; Z20.822 Contact with and (suspected) exposure to COVID-19; B96.20 Unspecified Escherichia coli [E. coli] as the cause of diseases classified elsewhere; M19.90 Unspecified osteoarthritis, unspecified site; I48.0 Paroxysmal atrial fibrillation; E78.5 Hyperlipidemia, unspecified; Z96.649 Presence of unspecified artificial hip joint; Z87.891 Personal history of nicotine dependence; Z88.0 Allergy status to penicillin; Z88.5 Allergy status to narcotic agent; Z90.49 Acquired absence of other specified parts of digestive tract
CPT/HCPCS: 36415; 36600; 70450; 71045; 76604; 80048; 80053; 81001; 82803; 82948; 83036; 83605; 83735; 83880; 84100; 84484; 85025; 87040; 87081; 87086; 94640; 94660; 96365; 96367; 97110; 97112; 97116; 97530; 99285; J0456; J0696; J1940; J2060; J7060; Q0092; Q0162

== ENCOUNTER 2023-09-27 12:02 | Inpatient (IN) | payer OTHER ==
[~2023-09-27] VITALS: Ht 152.4 cm; Wt 86.3 kg
[~2023-09-27 12:02] MED LIST changes: -ATI.5 PO; -CETI1SOL PO; -CHOL400T PO; -CRAN200C3 PO; -DENO60SO BC; -ENAL-197 PO; -FEXO180T82 PO; -GLUC1TAB68 PO; -NITR0.4T2 SL; -PANT40EC PO; -POTA10TA70 PO; -PRAV10TA4 PO; -SERT25TA PO; -SIMV40TA1 PO
[2023-09-27 12:38] VITALS: BP 136/76; PULSE 59; RESP 20; TEMP 98; O2SAT 96
[2023-09-27 13:42] LABS: BASOPHILS # (AUTO) 0.1 K/uL (0.00-0.22); BASOPHILS % (AUTO) 1.1 % (0.0-2.0); EOSINOPHILS # (AUTO) 0.1 K/uL (0-0.4); HEMATOCRIT 38.4 % (36-48); HEMOGLOBIN 12.5 g/dL (12.0-16.0); LYMPHOCYTES # (AUTO) 1.5 K/uL (2.5-16.5); LYMPHOCYTES % (AUTO) 23.5 % (20.5-51.1); MEAN CORPUSCULAR HEMOGLOBIN 28 pg (27-31); MEAN CORPUSCULAR HGB CONC 32 g/dL (33-37); MEAN CORPUSCULAR VOLUME 87.3 fL (80-94); MONOCYTES # (AUTO) 0.5 K/uL (0.8-1.0); MONOCYTES % (AUTO) 8.7 % (1.7-9.3); NEUTROPHILS % (AUTO) 64.7 % (42.2-75.2); PLATELET COUNT (AUTO) 276 K/uL (140-450); RED CELL DISTRIBUTION WIDTH 15.3 % (11.6-13.7); WHITE BLOOD COUNT (AUTO) 6.2 K/uL (4.8-10.8)
[2023-09-27 13:47] LABS: APPEARANCE,URINE CLEAR (CLEAR); BILIRUBIN,URINE NEGATIVE (NEGATIVE); COLOR,URINE YELLOW (YELLOW); LEUKOCYTE ESTERASE ,URINE 1+ (NEGATIVE); NITRITE, URINE NEGATIVE (NEGATIVE); PROTEIN,URINE NEGATIVE (NEGATIVE); UGLUCOSE NEGATIVE (NEGATIVE); UROBILINOGEN,URINE 0.2 EU/dL (0.2 - 1)
[2023-09-27] MEDS ORDERED: CLON0.1T46 TD (13:51)
[2023-09-27] MEDS ORDERED: LOSA-272 PO (13:51)
[2023-09-27] MEDS ORDERED: PRAV10TA4 PO (13:51)
[2023-09-27] MEDS ORDERED: PANT40EC PO (13:51)
[2023-09-27] MEDS ORDERED: CLON0.1T16 PO (13:51)
[2023-09-27] MEDS ORDERED: VITA400T14 PO (13:51)
[2023-09-27] MEDS ORDERED: CRAN250C PO (13:51)
[2023-09-27] MEDS ORDERED: SOTA80TA PO (13:51)
[2023-09-27 14:03] LABS: BACTERIA,URINE OCCASSIONAL /HPF (None Seen); RBC,URINE 0-5 /HPF (0-5); SQUAMOUS EPITHELIAL CELL,UR 0-3 (FEW) /LPF (0-3 (FEW))
[2023-09-27 14:04] LABS: BLOOD, URINE 1+ (NEGATIVE)
[2023-09-27 14:15] LABS: ALANINE AMINOTRANSFERASE 19 U/L (12-78); ALBUMIN 3.3 g/dL (3.4-5.0); ALKALINE PHOSPHATASE 48 U/L (50-136); ANION GAP 12.7 (8-16); ASPARTATE AMINOTRANSFERASE 31 U/L (15-37); CALCIUM 9.5 mg/dL (8.5-10.1); CARBON DIOXIDE 30.4 mmol/L (21-32); CHLORIDE 104 mmol/L (98-107); CREATININE 0.9 mg/dL (0.6-1.3); GLUCOSE 104 mg/dL (74-106); POTASSIUM 4.1 mmol/L (3.5-5.1); SODIUM SERUM 143 mmol/L (136-145); TOTAL BILIRUBIN 0.5 mg/dL (0.0-1.0); TOTAL PROTEIN, SERUM 7.5 g/dL (6.4-8.2); UREA NITROGEN, BLOOD 21 mg/dL (7-18)
[2023-09-27 14:22] LABS: INR 1.25 (0.8-1.2); PARTIAL THROMBOPLASTIN TIME 35.3 secs (22-35.6)
[2023-09-27] MEDS ORDERED: LEVOFLOXACIN 500 MG/D5W PREMIX 100 ML IV ONE (14:35)
[2023-09-27] MEDS ORDERED: FUROSEMIDE 20 MG/2 ML VIAL IVP ONE (14:35)
[2023-09-27] MEDS: NACL 0.9% 1,000 ML IV SCH (15:15)
[2023-09-27] MEDS ORDERED: ONDANSETRON 4 MG/2 ML VIAL IVP PRN (15:15)
[2023-09-27] MEDS ORDERED: CLONIDINE HYDROCHLORIDE 0.1 MG TAB PO PRN (15:25)
[2023-09-27 15:40] LABS: LACTIC ACID 0.7 mmol/L (0.4-2.0)
[2023-09-27 20:00] VITALS: BP 143/65; PULSE 73; RESP 18; TEMP 97.7; O2SAT 94
[2023-09-27] MEDS: SOTALOL 80 MG TAB PO SCH (20:40)
[2023-09-27] MEDS: DILTIAZEM 30 MG TAB PO SCH (20:41)
[2023-09-28 04:00] VITALS: BP 154/68; PULSE 74; RESP 18; TEMP 97.7; O2SAT 93
[2023-09-28] MEDS: NACL 0.9% 1,000 ML IV SCH (04:51)
[2023-09-28] MEDS: LEVOTHYROXINE 0.05 MG TAB PO SCH (05:35)
[2023-09-28 07:33] LABS: BASOPHILS % (AUTO) 0.9 % (0.0-2.0); EOSINOPHILS # (AUTO) 0.1 K/uL (0-0.4); HEMOGLOBIN 12.7 g/dL (12.0-16.0); LYMPHOCYTES # (AUTO) 1.1 K/uL (2.5-16.5); LYMPHOCYTES % (AUTO) 22.2 % (20.5-51.1); MEAN CORPUSCULAR HEMOGLOBIN 28 pg (27-31); MEAN CORPUSCULAR HGB CONC 32 g/dL (33-37); MEAN CORPUSCULAR VOLUME 88.2 fL (80-94); MONOCYTES # (AUTO) 0.5 K/uL (0.8-1.0); MONOCYTES % (AUTO) 10.4 % (1.7-9.3); NEUTROPHILS # (AUTO) 3.3 K/uL (1.8-7.7); NEUTROPHILS % (AUTO) 64.5 % (42.2-75.2); PLATELET COUNT (AUTO) 282 K/uL (140-450); RED BLOOD CELL COUNT(AUTO) 4.53 MIL/uL (4.20-5.40); RED CELL DISTRIBUTION WIDTH 14.9 % (11.6-13.7); WHITE BLOOD COUNT (AUTO) 5.1 K/uL (4.8-10.8)
[2023-09-28 07:46] VITALS: PULSE 73; RESP 18; O2SAT 94
[2023-09-28 07:47] VITALS: PULSE 78; RESP 20; O2SAT 99
[2023-09-28 08:00] VITALS: BP 173/63; PULSE 80; RESP 20; TEMP 98; O2SAT 95
[2023-09-28] MEDS ORDERED: LOSARTAN 25 MG TAB PO SCH (09:00)
[2023-09-28 09:08] LABS: ALANINE AMINOTRANSFERASE 18 U/L (12-78); ALKALINE PHOSPHATASE 45 U/L (50-136); ANION GAP 16.5 (8-16); ASPARTATE AMINOTRANSFERASE 26 U/L (15-37); CALCIUM 9.4 mg/dL (8.5-10.1); CARBON DIOXIDE 27.4 mmol/L (21-32); CHLORIDE 106 mmol/L (98-107); GLUCOSE 97 mg/dL (74-106); MAGNESIUM 1.8 mg/dL (1.8-2.4); POTASSIUM 3.9 mmol/L (3.5-5.1); SODIUM SERUM 146 mmol/L (136-145); TOTAL BILIRUBIN 0.4 mg/dL (0.0-1.0); UREA NITROGEN, BLOOD 21 mg/dL (7-18)
[2023-09-28] MEDS: DILTIAZEM 30 MG TAB PO SCH ×2 (09:36→20:55)
[2023-09-28] MEDS: SOTALOL 80 MG TAB PO SCH ×2 (09:37→20:55)
[2023-09-28] MEDS: ISOSORBIDE MONONITRATE 30 MG TABER PO SCH ×2 (09:37→20:55)
[2023-09-28] MEDS: RIVAROXABAN 15 MG TAB PO SCH (09:38)
[2023-09-28] MEDS: FENOFIBRATE 48 MG TAB PO SCH (09:39)
[2023-09-28] MEDS: DOCUSATE SODIUM 100 MG GELCAP PO SCH (09:39)
[2023-09-28] MEDS: PANTOPRAZOLE 40 MG TABEC PO SCH (09:46)
[2023-09-28] MEDS: ACETAMINOPHEN 325 MG TAB PO PRN (10:53)
[2023-09-28 16:00] VITALS: BP 158/60; PULSE 66; RESP 18; TEMP 98.5; O2SAT 94
[2023-09-28 20:00] VITALS: BP 160/61; PULSE 66; RESP 18; TEMP 98.5; O2SAT 94
[2023-09-28] MEDS: LOSARTAN 25 MG TAB PO SCH (20:54)
[2023-09-28] MEDS: TEMAZEPAM 15 MG CAP PO PRN (20:56)
[2023-09-29 04:00] VITALS: BP 158/60; PULSE 69; RESP 18; TEMP 98.5; O2SAT 96
[2023-09-29] MEDS: LEVOTHYROXINE 0.05 MG TAB PO SCH (05:38)
[2023-09-29 07:10] LABS: BASOPHILS % (AUTO) 0.7 % (0.0-2.0); EOSINOPHILS # (AUTO) 0.1 K/uL (0-0.4); EOSINOPHILS % (AUTO) 2.4 % (0.0-4.0); HEMATOCRIT 38.8 % (36-48); HEMOGLOBIN 12.4 g/dL (12.0-16.0); LYMPHOCYTES # (AUTO) 1.3 K/uL (2.5-16.5); LYMPHOCYTES % (AUTO) 21.8 % (20.5-51.1); MEAN CORPUSCULAR HEMOGLOBIN 28 pg (27-31); MEAN CORPUSCULAR HGB CONC 32 g/dL (33-37); MEAN CORPUSCULAR VOLUME 88.9 fL (80-94); MONOCYTES # (AUTO) 0.6 K/uL (0.8-1.0); MONOCYTES % (AUTO) 9.8 % (1.7-9.3); NEUTROPHILS % (AUTO) 65.3 % (42.2-75.2); PLATELET COUNT (AUTO) 293 K/uL (140-450); RED BLOOD CELL COUNT(AUTO) 4.36 MIL/uL (4.20-5.40); RED CELL DISTRIBUTION WIDTH 15.4 % (11.6-13.7); WHITE BLOOD COUNT (AUTO) 6.1 K/uL (4.8-10.8)
[2023-09-29 07:56] LABS: ANION GAP 8.9 (8-16); CALCIUM 9.5 mg/dL (8.5-10.1); CARBON DIOXIDE 32.9 mmol/L (21-32); CHLORIDE 108 mmol/L (98-107); CREATININE 0.8 mg/dL (0.6-1.3); GLUCOSE 111 mg/dL (74-106); POTASSIUM 3.8 mmol/L (3.5-5.1); SODIUM SERUM 146 mmol/L (136-145); UREA NITROGEN, BLOOD 16 mg/dL (7-18)
[2023-09-29 08:00] VITALS: BP 145/60; PULSE 70; RESP 19; TEMP 97.5; O2SAT 98
[2023-09-29 08:16] VITALS: PULSE 70; RESP 19; O2SAT 99
[2023-09-29] MEDS: FENOFIBRATE 48 MG TAB PO SCH (11:03)
[2023-09-29] MEDS: DOCUSATE SODIUM 100 MG GELCAP PO SCH (11:03)
[2023-09-29] MEDS: DILTIAZEM 30 MG TAB PO SCH ×2 (11:08→21:06)
[2023-09-29] MEDS: PANTOPRAZOLE 40 MG TABEC PO SCH (11:09)
[2023-09-29] MEDS: ISOSORBIDE MONONITRATE 30 MG TABER PO SCH ×2 (11:09→21:07)
[2023-09-29] MEDS: LOSARTAN 25 MG TAB PO SCH ×2 (11:09→21:07)
[2023-09-29] MEDS: SOTALOL 80 MG TAB PO SCH ×2 (11:10→21:05)
[2023-09-29] MEDS: RIVAROXABAN 15 MG TAB PO SCH (11:11)
[2023-09-29] MEDS ORDERED: guaiFENesin DM 200/20 MG-10 ML 10 ML UDC PO PRN (14:05)
[2023-09-29 16:00] VITALS: BP 165/62; PULSE 90; RESP 18; TEMP 97.9; O2SAT 99
[2023-09-29 20:00] VITALS: BP 160/61; PULSE 90; RESP 18; TEMP 97.8; O2SAT 99
[2023-09-29] MEDS ORDERED: hydrALAZINE 25 MG TAB PO SCH (21:00)
[2023-09-29] MEDS: TEMAZEPAM 15 MG CAP PO PRN (21:06)
[2023-09-30 04:00] VITALS: BP 151/64; PULSE 92; RESP 18; TEMP 97.8; O2SAT 98
[2023-09-30 05:41] LABS: BASOPHILS # (AUTO) 0.1 K/uL (0.00-0.22); EOSINOPHILS # (AUTO) 0.1 K/uL (0-0.4); EOSINOPHILS % (AUTO) 1.8 % (0.0-4.0); HEMATOCRIT 39.6 % (36-48); HEMOGLOBIN 12.6 g/dL (12.0-16.0); LYMPHOCYTES # (AUTO) 1.3 K/uL (2.5-16.5); LYMPHOCYTES % (AUTO) 21.4 % (20.5-51.1); MEAN CORPUSCULAR HEMOGLOBIN 28 pg (27-31); MEAN CORPUSCULAR HGB CONC 32 g/dL (33-37); MONOCYTES # (AUTO) 0.5 K/uL (0.8-1.0); MONOCYTES % (AUTO) 8.9 % (1.7-9.3); NEUTROPHILS # (AUTO) 3.9 K/uL (1.8-7.7); NEUTROPHILS % (AUTO) 66.9 % (42.2-75.2); PLATELET COUNT (AUTO) 299 K/uL (140-450); RED BLOOD CELL COUNT(AUTO) 4.45 MIL/uL (4.20-5.40); RED CELL DISTRIBUTION WIDTH 15.4 % (11.6-13.7); WHITE BLOOD COUNT (AUTO) 5.9 K/uL (4.8-10.8)
[2023-09-30] MEDS: LEVOTHYROXINE 0.05 MG TAB PO SCH (05:57)
[2023-09-30 06:06] LABS: ANION GAP 7.9 (8-16); CALCIUM 9.6 mg/dL (8.5-10.1); CARBON DIOXIDE 36.5 mmol/L (21-32); CHLORIDE 106 mmol/L (98-107); GLUCOSE 128 mg/dL (74-106); POTASSIUM 4.4 mmol/L (3.5-5.1); SODIUM SERUM 146 mmol/L (136-145); UREA NITROGEN, BLOOD 15 mg/dL (7-18)
[2023-09-30 08:00] VITALS: BP 149/59; PULSE 82; RESP 19; TEMP 98.3; O2SAT 97
[2023-09-30] MEDS: PANTOPRAZOLE 40 MG TABEC PO SCH (09:24)
[2023-09-30] MEDS: LOSARTAN 25 MG TAB PO SCH ×2 (09:25→21:00)
[2023-09-30] MEDS: DOCUSATE SODIUM 100 MG GELCAP PO SCH (09:25)
[2023-09-30] MEDS: DILTIAZEM 30 MG TAB PO SCH ×2 (09:26→21:00)
[2023-09-30] MEDS: FENOFIBRATE 48 MG TAB PO SCH (09:26)
[2023-09-30] MEDS: SOTALOL 80 MG TAB PO SCH ×2 (09:27→21:00)
[2023-09-30] MEDS: ISOSORBIDE MONONITRATE 30 MG TABER PO SCH ×2 (09:27→21:00)
[2023-09-30] MEDS: RIVAROXABAN 15 MG TAB PO SCH (09:32)
[2023-09-30] MEDS: hydrALAZINE 25 MG TAB PO SCH ×2 (09:40→21:00)
[2023-09-30 16:00] VITALS: BP 149/57; PULSE 82; RESP 19; TEMP 98.3; O2SAT 97
[2023-10-01] VITALS (35 sets, daily range): BP systolic 95–162; BP diastolic 40–119; PULSE 56–109; RESP 18–30; TEMP 96.7–101.5; O2SAT 98–100
[2023-10-01] MEDS ORDERED: PROPOFOL 1000 MG/100 ML PREMIX 100 ML IV ONE (01:01)
[2023-10-01] MEDS: PROPOFOL 1000 MG/100 ML PREMIX 100 ML IV PRN ×2 (01:30→14:24)
[2023-10-01] MEDS: LACTATED RINGERS 1,000 ML IV SCH ×2 (01:50→16:50)
[2023-10-01 02:13] LABS: BLOOD GAS PCO2 55.8 mmHg (35-45); BLOOD GAS PH 7.324 (7.35-7.45); BLOOD GAS PO2 477.9 mmHg (75-100)
[2023-10-01 02:14] LABS: BLOOD GAS BASE EXCESS 1.3 mmol/L (-2.0-2.0); BLOOD GAS HCO3 28.4 mmol/L (22-26)
[2023-10-01] MEDS: LEVOTHYROXINE 0.05 MG TAB PO SCH (05:40)
[2023-10-01 07:31] LABS: BASOPHILS # (AUTO) 0.1 K/uL (0.00-0.22); BASOPHILS % (AUTO) 0.7 % (0.0-2.0); EOSINOPHILS % (AUTO) 0.1 % (0.0-4.0); HEMATOCRIT 36.3 % (36-48); HEMOGLOBIN 11.5 g/dL (12.0-16.0); LYMPHOCYTES # (AUTO) 1.3 K/uL (2.5-16.5); LYMPHOCYTES % (AUTO) 16.8 % (20.5-51.1); MEAN CORPUSCULAR HEMOGLOBIN 28 pg (27-31); MEAN CORPUSCULAR HGB CONC 32 g/dL (33-37); MEAN CORPUSCULAR VOLUME 89.4 fL (80-94); MONOCYTES # (AUTO) 0.8 K/uL (0.8-1.0); MONOCYTES % (AUTO) 10.3 % (1.7-9.3); NEUTROPHILS # (AUTO) 5.7 K/uL (1.8-7.7); NEUTROPHILS % (AUTO) 72.1 % (42.2-75.2); PLATELET COUNT (AUTO) 242 K/uL (140-450); RED BLOOD CELL COUNT(AUTO) 4.06 MIL/uL (4.20-5.40); RED CELL DISTRIBUTION WIDTH 15.1 % (11.6-13.7); WHITE BLOOD COUNT (AUTO) 7.9 K/uL (4.8-10.8)
[2023-10-01 08:24] LABS: ALANINE AMINOTRANSFERASE 40 U/L (12-78); ALBUMIN 2.7 g/dL (3.4-5.0); ALKALINE PHOSPHATASE 45 U/L (50-136); ANION GAP 15.7 (8-16); ASPARTATE AMINOTRANSFERASE 63 U/L (15-37); CALCIUM 9.3 mg/dL (8.5-10.1); CARBON DIOXIDE 26.6 mmol/L (21-32); CHLORIDE 107 mmol/L (98-107); CREATININE 1.3 mg/dL (0.6-1.3); GLUCOSE 131 mg/dL (74-106); POTASSIUM 4.3 mmol/L (3.5-5.1); SODIUM SERUM 145 mmol/L (136-145); TOTAL BILIRUBIN 1.4 mg/dL (0.0-1.0); TOTAL PROTEIN, SERUM 6.4 g/dL (6.4-8.2); UREA NITROGEN, BLOOD 28 mg/dL (7-18)
[2023-10-01] MEDS: ACETAMINOPHEN 325 MG TAB PO PRN (08:34)
[2023-10-01] MEDS ORDERED: PANTOPRAZOLE 40 MG INJ VIAL IVP SCH (09:00)
[2023-10-01] MEDS: ISOSORBIDE MONONITRATE 30 MG TABER PO SCH (09:00)
[2023-10-01] MEDS: DILTIAZEM 30 MG TAB PO SCH ×2 (09:00→21:37)
[2023-10-01] MEDS: LOSARTAN 25 MG TAB PO SCH (09:50)
[2023-10-01] MEDS: hydrALAZINE 25 MG TAB PO SCH ×2 (09:52→21:37)
[2023-10-01] MEDS: SOTALOL 80 MG TAB PO SCH ×2 (09:52→21:37)
[2023-10-01] MEDS: DOCUSATE SODIUM 100 MG GELCAP PO SCH (09:53)
[2023-10-01 11:00] LABS: BLOOD GAS PH 7.645 (7.35-7.45)
[2023-10-01 11:01] LABS: BLOOD GAS BASE EXCESS 7.5 mmol/L (-2.0-2.0); BLOOD GAS HCO3 27.7 mmol/L (22-26); BLOOD GAS O2 SAT% 97.2 % (92.0-98.5); BLOOD GAS PO2 65.7 mmHg (75-100)
[2023-10-01] MEDS: FENOFIBRATE 48 MG TAB PO SCH (11:06)
[2023-10-01] MEDS: RIVAROXABAN 15 MG TAB PO SCH (11:08)
[2023-10-01] MEDS: metroNIDAZOLE 500 MG/NS PREMIX 100 ML IV SCH ×2 (14:14→21:38)
[2023-10-01] MEDS: AZTREONAM 1,000 MG in DEXTROSE 5% 50 ML IV SCH (16:53)
[2023-10-01] MEDS ORDERED: AZTREONAM 1,000 MG in DEXTROSE 5% 50 ML IV SCH (21:00)
[2023-10-01] MEDS: TEMAZEPAM 15 MG CAP PO PRN (21:37)
[2023-10-02] VITALS (30 sets, daily range): BP systolic 101–162; BP diastolic 34–80; PULSE 58–94; RESP 7–35; TEMP 97.4–98.6; O2SAT 97–100
[2023-10-02] MEDS: PROPOFOL 1000 MG/100 ML PREMIX 100 ML IV PRN ×2 (00:16→08:09)
[2023-10-02] MEDS: AZTREONAM 1,000 MG in DEXTROSE 5% 50 ML IV SCH ×2 (04:44→15:46)
[2023-10-02] MEDS: metroNIDAZOLE 500 MG/NS PREMIX 100 ML IV SCH ×3 (04:46→20:37)
[2023-10-02] MEDS: LACTATED RINGERS 1,000 ML IV SCH (04:46)
[2023-10-02] MEDS: LEVOTHYROXINE 0.05 MG TAB PO SCH (05:30)
[2023-10-02 05:39] LABS: BASOPHILS % (AUTO) 0.4 % (0.0-2.0); EOSINOPHILS % (AUTO) 0.4 % (0.0-4.0); HEMATOCRIT 36.7 % (36-48); HEMOGLOBIN 11.9 g/dL (12.0-16.0); LYMPHOCYTES % (AUTO) 12.6 % (20.5-51.1); MEAN CORPUSCULAR HEMOGLOBIN 28 pg (27-31); MEAN CORPUSCULAR HGB CONC 33 g/dL (33-37); MONOCYTES # (AUTO) 0.5 K/uL (0.8-1.0); NEUTROPHILS % (AUTO) 79.6 % (42.2-75.2); PLATELET COUNT (AUTO) 245 K/uL (140-450); RED BLOOD CELL COUNT(AUTO) 4.22 MIL/uL (4.20-5.40); RED CELL DISTRIBUTION WIDTH 15.4 % (11.6-13.7); WHITE BLOOD COUNT (AUTO) 7.6 K/uL (4.8-10.8)
[2023-10-02 06:10] LABS: ALANINE AMINOTRANSFERASE 30 U/L (12-78); ALBUMIN 2.5 g/dL (3.4-5.0); ALKALINE PHOSPHATASE 42 U/L (50-136); ASPARTATE AMINOTRANSFERASE 45 U/L (15-37); CALCIUM 9.5 mg/dL (8.5-10.1); CARBON DIOXIDE 26.3 mmol/L (21-32); CHLORIDE 106 mmol/L (98-107); CREATININE 1.1 mg/dL (0.6-1.3); GLUCOSE 109 mg/dL (74-106); POTASSIUM 3.3 mmol/L (3.5-5.1); SODIUM SERUM 143 mmol/L (136-145); TOTAL BILIRUBIN 0.7 mg/dL (0.0-1.0); TOTAL PROTEIN, SERUM 6.4 g/dL (6.4-8.2); UREA NITROGEN, BLOOD 23 mg/dL (7-18)
[2023-10-02] MEDS: hydrALAZINE 25 MG TAB PO SCH ×3 (09:00→20:38)
[2023-10-02] MEDS: SOTALOL 80 MG TAB PO SCH ×2 (09:00→20:38)
[2023-10-02] MEDS: PANTOPRAZOLE 40 MG INJ VIAL IVP SCH (09:43)
[2023-10-02] MEDS: DILTIAZEM 30 MG TAB PO SCH ×2 (09:44→20:39)
[2023-10-02] MEDS: FENOFIBRATE 48 MG TAB PO SCH (09:44)
[2023-10-02] MEDS: RIVAROXABAN 15 MG TAB PO SCH (09:45)
[2023-10-02] MEDS: DOCUSATE SODIUM 100 MG GELCAP PO SCH (09:46)
[2023-10-02] MEDS ORDERED: POTASSIUM CHLORIDE 20% 40 MEQ/15 ML UDC GT SCH (11:22)
[2023-10-02] MEDS ORDERED: PHENYLEPHRINE 100 MG in NACL 0.9% 250 ML IV PRN (11:50)
[2023-10-02] MEDS: SODIUM BICARBONATE 8.4% PFS 50 MEQ/50 ML SYR IVP SCH ×2 (11:56→15:02)
[2023-10-02] MEDS ORDERED: PHENYLEPHRINE 10 MG in NACL 0.9% 250 ML IV PRN (12:20)
[2023-10-02] MEDS: TEMAZEPAM 15 MG CAP PO PRN (20:39)
[2023-10-02] MEDS ORDERED: CRUSHER, PILL MC ONE (20:43)
[2023-10-03] VITALS (30 sets, daily range): BP systolic 116–166; BP diastolic 48–93; PULSE 65–93; RESP 18–36; TEMP 97.2–98.1; O2SAT 98–100
[2023-10-03] MEDS: LACTATED RINGERS 1,000 ML IV SCH (00:36)
[2023-10-03] MEDS: AZTREONAM 1,000 MG in DEXTROSE 5% 50 ML IV SCH ×2 (03:38→15:24)
[2023-10-03] MEDS: metroNIDAZOLE 500 MG/NS PREMIX 100 ML IV SCH ×3 (04:50→20:16)
[2023-10-03 05:42] LABS: BASOPHILS % (AUTO) 0.4 % (0.0-2.0); EOSINOPHILS % (AUTO) 0.5 % (0.0-4.0); HEMATOCRIT 34.9 % (36-48); HEMOGLOBIN 11.4 g/dL (12.0-16.0); LYMPHOCYTES # (AUTO) 1.2 K/uL (2.5-16.5); LYMPHOCYTES % (AUTO) 15.8 % (20.5-51.1); MEAN CORPUSCULAR HEMOGLOBIN 28 pg (27-31); MEAN CORPUSCULAR HGB CONC 33 g/dL (33-37); MEAN CORPUSCULAR VOLUME 85.5 fL (80-94); MONOCYTES # (AUTO) 0.5 K/uL (0.8-1.0); MONOCYTES % (AUTO) 7.4 % (1.7-9.3); NEUTROPHILS # (AUTO) 5.5 K/uL (1.8-7.7); NEUTROPHILS % (AUTO) 75.9 % (42.2-75.2); PLATELET COUNT (AUTO) 248 K/uL (140-450); RED BLOOD CELL COUNT(AUTO) 4.09 MIL/uL (4.20-5.40); RED CELL DISTRIBUTION WIDTH 15.9 % (11.6-13.7); WHITE BLOOD COUNT (AUTO) 7.3 K/uL (4.8-10.8)
[2023-10-03] MEDS: LEVOTHYROXINE 0.05 MG TAB PO SCH (06:48)
[2023-10-03 07:06] LABS: ALANINE AMINOTRANSFERASE 23 U/L (12-78); ALBUMIN 2.2 g/dL (3.4-5.0); ALKALINE PHOSPHATASE 40 U/L (50-136); ANION GAP 12.1 (8-16); ASPARTATE AMINOTRANSFERASE 31 U/L (15-37); CALCIUM 9.1 mg/dL (8.5-10.1); CHLORIDE 108 mmol/L (98-107); GLUCOSE 130 mg/dL (74-106); POTASSIUM 3.1 mmol/L (3.5-5.1); SODIUM SERUM 141 mmol/L (136-145); TOTAL BILIRUBIN 0.7 mg/dL (0.0-1.0); UREA NITROGEN, BLOOD 8 mg/dL (7-18)
[2023-10-03] MEDS: PANTOPRAZOLE 40 MG INJ VIAL IVP SCH (08:55)
[2023-10-03] MEDS: RIVAROXABAN 15 MG TAB PO SCH (08:56)
[2023-10-03] MEDS: FENOFIBRATE 48 MG TAB PO SCH (08:56)
[2023-10-03] MEDS: SOTALOL 80 MG TAB PO SCH ×2 (08:58→20:14)
[2023-10-03] MEDS: DILTIAZEM 30 MG TAB PO SCH ×2 (08:58→20:15)
[2023-10-03] MEDS: DOCUSATE SODIUM 100 MG GELCAP PO SCH (08:59)
[2023-10-03] MEDS: hydrALAZINE 25 MG TAB PO SCH ×2 (09:01→20:20)
[2023-10-03] MEDS: FUROSEMIDE 40 MG/4 ML VIAL IVP SCH (12:48)
[2023-10-03] MEDS: POTASSIUM CHLORIDE 20% 40 MEQ/15 ML UDC GT SCH (15:25)
[2023-10-03] MEDS: PROPOFOL 1000 MG/100 ML PREMIX 100 ML IV PRN (15:41)
[2023-10-03] MEDS ORDERED: POTASSIUM CHLORIDE 20% 40 MEQ/15 ML UDC GT ONE (17:00)
[2023-10-04] VITALS (33 sets, daily range): BP systolic 91–145; BP diastolic 42–88; PULSE 55–122; RESP 20–34; TEMP 97.8–98.2; O2SAT 98–100
[2023-10-04] MEDS: AZTREONAM 1,000 MG in DEXTROSE 5% 50 ML IV SCH ×2 (04:29→15:12)
[2023-10-04] MEDS: metroNIDAZOLE 500 MG/NS PREMIX 100 ML IV SCH ×3 (04:30→20:27)
[2023-10-04 05:33] LABS: BASOPHILS % (AUTO) 0.6 % (0.0-2.0); EOSINOPHILS # (AUTO) 0.1 K/uL (0-0.4); EOSINOPHILS % (AUTO) 2.1 % (0.0-4.0); HEMATOCRIT 35.1 % (36-48); HEMOGLOBIN 11.5 g/dL (12.0-16.0); LYMPHOCYTES # (AUTO) 1.2 K/uL (2.5-16.5); LYMPHOCYTES % (AUTO) 19.3 % (20.5-51.1); MEAN CORPUSCULAR HEMOGLOBIN 28 pg (27-31); MEAN CORPUSCULAR HGB CONC 33 g/dL (33-37); MEAN CORPUSCULAR VOLUME 86.6 fL (80-94); MONOCYTES # (AUTO) 0.5 K/uL (0.8-1.0); MONOCYTES % (AUTO) 8.5 % (1.7-9.3); NEUTROPHILS # (AUTO) 4.4 K/uL (1.8-7.7); NEUTROPHILS % (AUTO) 69.5 % (42.2-75.2); PLATELET COUNT (AUTO) 242 K/uL (140-450); RED BLOOD CELL COUNT(AUTO) 4.05 MIL/uL (4.20-5.40); RED CELL DISTRIBUTION WIDTH 15.8 % (11.6-13.7); WHITE BLOOD COUNT (AUTO) 6.4 K/uL (4.8-10.8)
[2023-10-04 05:48] LABS: ALANINE AMINOTRANSFERASE 22 U/L (12-78); ALBUMIN 1.9 g/dL (3.4-5.0); ALKALINE PHOSPHATASE 42 U/L (50-136); ANION GAP 11.5 (8-16); ASPARTATE AMINOTRANSFERASE 22 U/L (15-37); CARBON DIOXIDE 25.8 mmol/L (21-32); CHLORIDE 108 mmol/L (98-107); GLUCOSE 114 mg/dL (74-106); POTASSIUM 3.3 mmol/L (3.5-5.1); SODIUM SERUM 142 mmol/L (136-145); TOTAL BILIRUBIN 0.6 mg/dL (0.0-1.0); TOTAL PROTEIN, SERUM 6.2 g/dL (6.4-8.2); UREA NITROGEN, BLOOD 25 mg/dL (7-18)
[2023-10-04] MEDS: LEVOTHYROXINE 0.05 MG TAB PO SCH (06:30)
[2023-10-04] MEDS: FUROSEMIDE 40 MG/4 ML VIAL IVP SCH (08:18)
[2023-10-04] MEDS: PANTOPRAZOLE 40 MG INJ VIAL IVP SCH (08:18)
[2023-10-04] MEDS: SOTALOL 80 MG TAB PO SCH ×2 (08:19→20:28)
[2023-10-04] MEDS: DILTIAZEM 30 MG TAB PO SCH ×2 (08:19→20:28)
[2023-10-04] MEDS: DOCUSATE SODIUM 100 MG GELCAP PO SCH (08:20)
[2023-10-04] MEDS: hydrALAZINE 25 MG TAB PO SCH ×2 (08:20→20:29)
[2023-10-04] MEDS ORDERED: METOPROLOL 5 MG/5 ML VIAL IVP PRN (08:35)
[2023-10-04] MEDS: FENOFIBRATE 48 MG TAB PO SCH (08:37)
[2023-10-04] MEDS: RIVAROXABAN 15 MG TAB PO SCH (08:38)
[2023-10-04] MEDS: BLOOD GLUCOSE MONITORING 1 DEV DEV FS SCH ×2 (12:00→18:22)
[2023-10-04] MEDS: PROPOFOL 1000 MG/100 ML PREMIX 100 ML IV PRN (19:56)
[2023-10-04] MEDS ORDERED: KCL 20 MEQ IN 100 mL PREMIX 200 ML IV ONE (21:01)
[2023-10-04] MEDS: POTASSIUM CHLORIDE 40 MEQ, LIDOCAINE 1% 25 MG in NACL 0.9% 250 ML IV PRN (21:09)
[2023-10-05] VITALS (31 sets, daily range): BP systolic 93–157; BP diastolic 33–88; PULSE 47–66; RESP 20–38; TEMP 97.5–97.9; O2SAT 96–100
[2023-10-05] MEDS: BLOOD GLUCOSE MONITORING 1 DEV DEV FS SCH ×4 (00:34→17:26)
[2023-10-05] MEDS: AZTREONAM 1,000 MG in DEXTROSE 5% 50 ML IV SCH ×2 (02:58→15:51)
[2023-10-05] MEDS: metroNIDAZOLE 500 MG/NS PREMIX 100 ML IV SCH ×3 (05:13→20:10)
[2023-10-05] MEDS: LEVOTHYROXINE 0.05 MG TAB PO SCH (05:43)
[2023-10-05 07:21] LABS: BASOPHILS # (AUTO) 0.1 K/uL (0.00-0.22); BASOPHILS % (AUTO) 0.8 % (0.0-2.0); EOSINOPHILS # (AUTO) 0.2 K/uL (0-0.4); EOSINOPHILS % (AUTO) 3.4 % (0.0-4.0); HEMATOCRIT 35.8 % (36-48); HEMOGLOBIN 11.6 g/dL (12.0-16.0); LYMPHOCYTES # (AUTO) 1.6 K/uL (2.5-16.5); LYMPHOCYTES % (AUTO) 24.5 % (20.5-51.1); MEAN CORPUSCULAR HEMOGLOBIN 28 pg (27-31); MEAN CORPUSCULAR HGB CONC 33 g/dL (33-37); MEAN CORPUSCULAR VOLUME 86.8 fL (80-94); MONOCYTES # (AUTO) 0.6 K/uL (0.8-1.0); MONOCYTES % (AUTO) 8.9 % (1.7-9.3); NEUTROPHILS % (AUTO) 62.4 % (42.2-75.2); PLATELET COUNT (AUTO) 268 K/uL (140-450); RED BLOOD CELL COUNT(AUTO) 4.12 MIL/uL (4.20-5.40); RED CELL DISTRIBUTION WIDTH 15.7 % (11.6-13.7); WHITE BLOOD COUNT (AUTO) 6.4 K/uL (4.8-10.8)
[2023-10-05 08:42] LABS: ALANINE AMINOTRANSFERASE 17 U/L (12-78); ALKALINE PHOSPHATASE 42 U/L (50-136); ANION GAP 13.9 (8-16); ASPARTATE AMINOTRANSFERASE 27 U/L (15-37); CALCIUM 9.2 mg/dL (8.5-10.1); CARBON DIOXIDE 22.8 mmol/L (21-32); CHLORIDE 107 mmol/L (98-107); CREATININE 1.1 mg/dL (0.6-1.3); GLUCOSE 110 mg/dL (74-106); POTASSIUM 3.7 mmol/L (3.5-5.1); SODIUM SERUM 140 mmol/L (136-145); TOTAL BILIRUBIN 0.6 mg/dL (0.0-1.0); TOTAL PROTEIN, SERUM 6.4 g/dL (6.4-8.2); UREA NITROGEN, BLOOD 29 mg/dL (7-18)
[2023-10-05] MEDS: hydrALAZINE 25 MG TAB PO SCH ×2 (09:19→20:10)
[2023-10-05] MEDS: SOTALOL 80 MG TAB PO SCH ×2 (09:20→20:11)
[2023-10-05] MEDS: DILTIAZEM 30 MG TAB PO SCH ×2 (09:20→20:10)
[2023-10-05] MEDS: PANTOPRAZOLE 40 MG INJ VIAL IVP SCH (09:20)
[2023-10-05] MEDS: FUROSEMIDE 40 MG/4 ML VIAL IVP SCH (09:20)
[2023-10-05] MEDS: RIVAROXABAN 15 MG TAB PO SCH (09:23)
[2023-10-05] MEDS: FENOFIBRATE 48 MG TAB PO SCH (09:23)
[2023-10-05] MEDS ORDERED: POTASSIUM CHLORIDE 10 MEQ TABER PO SCH (10:00)
[2023-10-05] MEDS ORDERED: POTASSIUM CHLORIDE 20% 40 MEQ/15 ML UDC GT SCH (10:30)
[2023-10-05] MEDS ORDERED: DEXMEDETOMIDINE HCL 400 MCG in NACL 0.9% 96 ML IV PRN (15:20)
[2023-10-06] VITALS (30 sets, daily range): BP systolic 67–149; BP diastolic 35–73; PULSE 46–59; RESP 12–32; TEMP 96.3–98.1; O2SAT 98–100
[2023-10-06] MEDS: BLOOD GLUCOSE MONITORING 1 DEV DEV FS SCH ×4 (00:12→17:27)
[2023-10-06] MEDS: AZTREONAM 1,000 MG in DEXTROSE 5% 50 ML IV SCH ×2 (04:04→16:13)
[2023-10-06] MEDS: metroNIDAZOLE 500 MG/NS PREMIX 100 ML IV SCH ×3 (04:04→20:03)
[2023-10-06 04:35] LABS: BASOPHILS # (AUTO) 0.1 K/uL (0.00-0.22); BASOPHILS % (AUTO) 0.9 % (0.0-2.0); EOSINOPHILS # (AUTO) 0.2 K/uL (0-0.4); EOSINOPHILS % (AUTO) 3.3 % (0.0-4.0); HEMATOCRIT 35.5 % (36-48); HEMOGLOBIN 11.4 g/dL (12.0-16.0); LYMPHOCYTES # (AUTO) 1.2 K/uL (2.5-16.5); LYMPHOCYTES % (AUTO) 18.3 % (20.5-51.1); MEAN CORPUSCULAR HEMOGLOBIN 28 pg (27-31); MEAN CORPUSCULAR HGB CONC 32 g/dL (33-37); MEAN CORPUSCULAR VOLUME 86.4 fL (80-94); MONOCYTES # (AUTO) 0.6 K/uL (0.8-1.0); MONOCYTES % (AUTO) 8.8 % (1.7-9.3); NEUTROPHILS # (AUTO) 4.4 K/uL (1.8-7.7); NEUTROPHILS % (AUTO) 68.7 % (42.2-75.2); PLATELET COUNT (AUTO) 265 K/uL (140-450); RED CELL DISTRIBUTION WIDTH 16.2 % (11.6-13.7); WHITE BLOOD COUNT (AUTO) 6.4 K/uL (4.8-10.8)
[2023-10-06 05:20] LABS: ALANINE AMINOTRANSFERASE 17 U/L (12-78); ALBUMIN 1.8 g/dL (3.4-5.0); ALKALINE PHOSPHATASE 56 U/L (50-136); ANION GAP 10.9 (8-16); ASPARTATE AMINOTRANSFERASE 21 U/L (15-37); CALCIUM 8.9 mg/dL (8.5-10.1); CARBON DIOXIDE 24.5 mmol/L (21-32); CHLORIDE 109 mmol/L (98-107); CREATININE 1.1 mg/dL (0.6-1.3); GLUCOSE 156 mg/dL (74-106); POTASSIUM 3.4 mmol/L (3.5-5.1); SODIUM SERUM 141 mmol/L (136-145); TOTAL BILIRUBIN 0.5 mg/dL (0.0-1.0); TOTAL PROTEIN, SERUM 6.2 g/dL (6.4-8.2); UREA NITROGEN, BLOOD 33 mg/dL (7-18)
[2023-10-06] MEDS: LEVOTHYROXINE 0.05 MG TAB PO SCH (05:35)
[2023-10-06 06:40] LABS: MAGNESIUM 2.1 mg/dL (1.8-2.4); PHOSPHORUS 3.4 mg/dL (2.5-4.9)
[2023-10-06] MEDS: SOTALOL 80 MG TAB PO SCH ×2 (09:00→20:10)
[2023-10-06] MEDS: DILTIAZEM 30 MG TAB PO SCH (09:00)
[2023-10-06] MEDS: DOCUSATE 100 MG/10 ML UDC GT SCH (09:14)
[2023-10-06] MEDS: FUROSEMIDE 40 MG/4 ML VIAL IVP SCH ×2 (09:15→21:35)
[2023-10-06] MEDS: PANTOPRAZOLE 40 MG INJ VIAL IVP SCH (09:15)
[2023-10-06] MEDS: RIVAROXABAN 15 MG TAB PO SCH (09:16)
[2023-10-06] MEDS: FENOFIBRATE 48 MG TAB PO SCH (09:19)
[2023-10-06] MEDS: POTASSIUM CHLORIDE 40 MEQ, LIDOCAINE 1% 25 MG in NACL 0.9% 250 ML IV PRN (10:44)
[2023-10-06] MEDS: DEXMEDETOMIDINE HCL 400 MCG in NACL 0.9% 96 ML IV PRN (10:51)
[2023-10-06] MEDS: hydrALAZINE 25 MG TAB PO SCH ×2 (11:23→20:10)
[2023-10-07] VITALS (23 sets, daily range): BP systolic 95–128; BP diastolic 36–80; PULSE 46–90; RESP 12–31; TEMP 96.8–98.9; O2SAT 97–100
[2023-10-07] MEDS: BLOOD GLUCOSE MONITORING 1 DEV DEV FS SCH ×5 (00:06→23:30)
[2023-10-07] MEDS: AZTREONAM 1,000 MG in DEXTROSE 5% 50 ML IV SCH ×2 (03:35→16:09)
[2023-10-07] MEDS: metroNIDAZOLE 500 MG/NS PREMIX 100 ML IV SCH ×3 (04:44→20:17)
[2023-10-07 05:05] LABS: BASOPHILS # (AUTO) 0.1 K/uL (0.00-0.22); BASOPHILS % (AUTO) 0.9 % (0.0-2.0); EOSINOPHILS # (AUTO) 0.3 K/uL (0-0.4); EOSINOPHILS % (AUTO) 3.5 % (0.0-4.0); HEMATOCRIT 34.7 % (36-48); HEMOGLOBIN 11.2 g/dL (12.0-16.0); LYMPHOCYTES # (AUTO) 1.2 K/uL (2.5-16.5); LYMPHOCYTES % (AUTO) 16.5 % (20.5-51.1); MEAN CORPUSCULAR HEMOGLOBIN 28 pg (27-31); MEAN CORPUSCULAR HGB CONC 32 g/dL (33-37); MONOCYTES # (AUTO) 0.7 K/uL (0.8-1.0); MONOCYTES % (AUTO) 9.3 % (1.7-9.3); NEUTROPHILS # (AUTO) 5.1 K/uL (1.8-7.7); NEUTROPHILS % (AUTO) 69.8 % (42.2-75.2); PLATELET COUNT (AUTO) 301 K/uL (140-450); RED BLOOD CELL COUNT(AUTO) 3.98 MIL/uL (4.20-5.40); WHITE BLOOD COUNT (AUTO) 7.4 K/uL (4.8-10.8)
[2023-10-07 05:29] LABS: ALANINE AMINOTRANSFERASE 16 U/L (12-78); ALBUMIN 1.8 g/dL (3.4-5.0); ALKALINE PHOSPHATASE 55 U/L (50-136); ANION GAP 9.7 (8-16); ASPARTATE AMINOTRANSFERASE 17 U/L (15-37); CALCIUM 8.9 mg/dL (8.5-10.1); CARBON DIOXIDE 26.5 mmol/L (21-32); CHLORIDE 109 mmol/L (98-107); GLUCOSE 137 mg/dL (74-106); POTASSIUM 3.2 mmol/L (3.5-5.1); SODIUM SERUM 142 mmol/L (136-145); TOTAL BILIRUBIN 0.5 mg/dL (0.0-1.0); TOTAL PROTEIN, SERUM 6.2 g/dL (6.4-8.2); UREA NITROGEN, BLOOD 34 mg/dL (7-18)
[2023-10-07] MEDS: LEVOTHYROXINE 0.05 MG TAB PO SCH (05:38)
[2023-10-07 06:23] LABS: MAGNESIUM 2.1 mg/dL (1.8-2.4); PHOSPHORUS 3.3 mg/dL (2.5-4.9)
[2023-10-07] MEDS: POTASSIUM CHLORIDE 40 MEQ, LIDOCAINE 1% 25 MG in NACL 0.9% 250 ML IV PRN (08:36)
[2023-10-07] MEDS: DEXMEDETOMIDINE HCL 400 MCG in NACL 0.9% 96 ML IV PRN (08:43)
[2023-10-07] MEDS: hydrALAZINE 25 MG TAB PO SCH ×2 (09:00→20:18)
[2023-10-07] MEDS: SOTALOL 80 MG TAB PO SCH ×2 (09:00→21:03)
[2023-10-07] MEDS: PANTOPRAZOLE 40 MG INJ VIAL IVP SCH (09:10)
[2023-10-07] MEDS: DOCUSATE 100 MG/10 ML UDC GT SCH (09:10)
[2023-10-07] MEDS: FUROSEMIDE 40 MG/4 ML VIAL IVP SCH ×2 (09:10→20:17)
[2023-10-07] MEDS: RIVAROXABAN 15 MG TAB PO SCH (09:11)
[2023-10-07] MEDS: FENOFIBRATE 48 MG TAB PO SCH (09:12)
[2023-10-07 14:06] LABS: BLOOD GAS BASE EXCESS -2.1 mmol/L (-2.0-2.0); BLOOD GAS HCO3 22.8 mmol/L (22-26); BLOOD GAS O2 SAT% 95.9 % (92.0-98.5); BLOOD GAS PCO2 39.4 mmHg (35-45); BLOOD GAS PO2 88.8 mmHg (75-100)
[2023-10-08] VITALS (18 sets, daily range): BP systolic 100–149; BP diastolic 45–86; PULSE 74–89; RESP 16–29; TEMP 97.1–99.1; O2SAT 84–100
[2023-10-08] MEDS: AZTREONAM 1,000 MG in DEXTROSE 5% 50 ML IV SCH ×2 (03:31→16:45)
[2023-10-08] MEDS: metroNIDAZOLE 500 MG/NS PREMIX 100 ML IV SCH ×3 (05:03→20:33)
[2023-10-08 05:18] LABS: BASOPHILS % (AUTO) 0.4 % (0.0-2.0); EOSINOPHILS # (AUTO) 0.2 K/uL (0-0.4); EOSINOPHILS % (AUTO) 2.2 % (0.0-4.0); HEMATOCRIT 35.6 % (36-48); HEMOGLOBIN 11.3 g/dL (12.0-16.0); LYMPHOCYTES # (AUTO) 1.1 K/uL (2.5-16.5); LYMPHOCYTES % (AUTO) 13.1 % (20.5-51.1); MEAN CORPUSCULAR HEMOGLOBIN 28 pg (27-31); MEAN CORPUSCULAR HGB CONC 32 g/dL (33-37); MEAN CORPUSCULAR VOLUME 88.4 fL (80-94); MONOCYTES # (AUTO) 0.9 K/uL (0.8-1.0); MONOCYTES % (AUTO) 10.4 % (1.7-9.3); NEUTROPHILS # (AUTO) 6.5 K/uL (1.8-7.7); NEUTROPHILS % (AUTO) 73.9 % (42.2-75.2); PLATELET COUNT (AUTO) 323 K/uL (140-450); RED BLOOD CELL COUNT(AUTO) 4.03 MIL/uL (4.20-5.40); RED CELL DISTRIBUTION WIDTH 16.2 % (11.6-13.7); WHITE BLOOD COUNT (AUTO) 8.8 K/uL (4.8-10.8)
[2023-10-08] MEDS: LEVOTHYROXINE 0.05 MG TAB PO SCH (05:51)
[2023-10-08] MEDS: BLOOD GLUCOSE MONITORING 1 DEV DEV FS SCH ×3 (05:51→17:48)
[2023-10-08 06:17] LABS: ALANINE AMINOTRANSFERASE 15 U/L (12-78); ALBUMIN 1.9 g/dL (3.4-5.0); ALKALINE PHOSPHATASE 46 U/L (50-136); ANION GAP 10.5 (8-16); ASPARTATE AMINOTRANSFERASE 18 U/L (15-37); CALCIUM 8.9 mg/dL (8.5-10.1); CARBON DIOXIDE 28.9 mmol/L (21-32); CHLORIDE 108 mmol/L (98-107); CREATININE 0.9 mg/dL (0.6-1.3); GLUCOSE 117 mg/dL (74-106); POTASSIUM 3.4 mmol/L (3.5-5.1); SODIUM SERUM 144 mmol/L (136-145); TOTAL BILIRUBIN 0.5 mg/dL (0.0-1.0); TOTAL PROTEIN, SERUM 6.4 g/dL (6.4-8.2); UREA NITROGEN, BLOOD 27 mg/dL (7-18)
[2023-10-08] MEDS: PANTOPRAZOLE 40 MG INJ VIAL IVP SCH (08:55)
[2023-10-08] MEDS: FUROSEMIDE 40 MG/4 ML VIAL IVP SCH ×2 (08:59→20:32)
[2023-10-08] MEDS: SOTALOL 80 MG TAB PO SCH ×2 (09:14→20:33)
[2023-10-08] MEDS: FENOFIBRATE 48 MG TAB PO SCH (09:14)
[2023-10-08] MEDS: hydrALAZINE 25 MG TAB PO SCH ×2 (09:15→20:35)
[2023-10-08] MEDS: RIVAROXABAN 15 MG TAB PO SCH (09:20)
[2023-10-08] MEDS: POTASSIUM CHLORIDE 40 MEQ, LIDOCAINE 1% 25 MG in NACL 0.9% 250 ML IV PRN (10:26)
[2023-10-08] MEDS: DOCUSATE 100 MG/10 ML UDC GT SCH (10:32)
[2023-10-08] MEDS ORDERED: ALBUTEROL SULFATE/IPRATROPIU 3 ML SOL IH PRN (20:15)
[2023-10-08] MEDS ORDERED: CRUSHER, PILL MC ONE (20:29)
[2023-10-09] VITALS (11 sets, daily range): BP systolic 117–155; BP diastolic 49–78; PULSE 78–93; RESP 18–20; TEMP 97.2–98.4; O2SAT 97–98
[2023-10-09] MEDS: BLOOD GLUCOSE MONITORING 1 DEV DEV FS SCH ×5 (00:37→20:36)
[2023-10-09] MEDS: AZTREONAM 1,000 MG in DEXTROSE 5% 50 ML IV SCH ×2 (03:18→16:52)
[2023-10-09] MEDS: LEVOTHYROXINE 0.05 MG TAB PO SCH (05:54)
[2023-10-09] MEDS: metroNIDAZOLE 500 MG/NS PREMIX 100 ML IV SCH ×3 (05:54→20:37)
[2023-10-09 07:29] LABS: BASOPHILS # (AUTO) 0.1 K/uL (0.00-0.22); BASOPHILS % (AUTO) 0.6 % (0.0-2.0); EOSINOPHILS # (AUTO) 0.1 K/uL (0-0.4); EOSINOPHILS % (AUTO) 1.3 % (0.0-4.0); HEMATOCRIT 36.7 % (36-48); HEMOGLOBIN 11.7 g/dL (12.0-16.0); LYMPHOCYTES # (AUTO) 1.2 K/uL (2.5-16.5); LYMPHOCYTES % (AUTO) 13.3 % (20.5-51.1); MEAN CORPUSCULAR HEMOGLOBIN 28 pg (27-31); MEAN CORPUSCULAR HGB CONC 32 g/dL (33-37); MEAN CORPUSCULAR VOLUME 88.3 fL (80-94); MONOCYTES % (AUTO) 11.3 % (1.7-9.3); NEUTROPHILS # (AUTO) 6.5 K/uL (1.8-7.7); NEUTROPHILS % (AUTO) 73.5 % (42.2-75.2); PLATELET COUNT (AUTO) 427 K/uL (140-450); RED BLOOD CELL COUNT(AUTO) 4.16 MIL/uL (4.20-5.40); RED CELL DISTRIBUTION WIDTH 15.6 % (11.6-13.7); WHITE BLOOD COUNT (AUTO) 8.9 K/uL (4.8-10.8)
[2023-10-09 07:56] LABS: ALANINE AMINOTRANSFERASE 16 U/L (12-78); ALBUMIN 2.1 g/dL (3.4-5.0); ALKALINE PHOSPHATASE 41 U/L (50-136); ANION GAP 9.7 (8-16); ASPARTATE AMINOTRANSFERASE 15 U/L (15-37); CALCIUM 9.5 mg/dL (8.5-10.1); CARBON DIOXIDE 32.6 mmol/L (21-32); CHLORIDE 107 mmol/L (98-107); CREATININE 0.8 mg/dL (0.6-1.3); GLUCOSE 100 mg/dL (74-106); POTASSIUM 3.3 mmol/L (3.5-5.1); SODIUM SERUM 146 mmol/L (136-145); TOTAL BILIRUBIN 0.7 mg/dL (0.0-1.0); TOTAL PROTEIN, SERUM 6.8 g/dL (6.4-8.2); UREA NITROGEN, BLOOD 22 mg/dL (7-18)
[2023-10-09 08:42] LABS: MAGNESIUM 2.1 mg/dL (1.8-2.4); PHOSPHORUS 2.9 mg/dL (2.5-4.9)
[2023-10-09] MEDS: FENOFIBRATE 48 MG TAB PO SCH (09:16)
[2023-10-09] MEDS: SOTALOL 80 MG TAB PO SCH ×2 (09:16→20:11)
[2023-10-09] MEDS: DOCUSATE 100 MG/10 ML UDC GT SCH (09:16)
[2023-10-09] MEDS: FUROSEMIDE 40 MG/4 ML VIAL IVP SCH ×2 (09:17→20:11)
[2023-10-09] MEDS: PANTOPRAZOLE 40 MG INJ VIAL IVP SCH (09:17)
[2023-10-09] MEDS: hydrALAZINE 25 MG TAB PO SCH ×2 (09:17→20:11)
[2023-10-09] MEDS: RIVAROXABAN 15 MG TAB PO SCH (09:19)
[2023-10-09] MEDS ORDERED: LORazepam 1 MG TAB PO PRN (19:20)
[2023-10-09] MEDS ORDERED: LORazepam 1 MG TAB ONE (20:14)
[2023-10-10] VITALS (8 sets, daily range): BP systolic 121–156; BP diastolic 43–68; PULSE 76–114; RESP 18–23; TEMP 97.7–98.4; O2SAT 95–98
[2023-10-10] MEDS: AZTREONAM 1,000 MG in DEXTROSE 5% 50 ML IV SCH ×2 (03:52→16:07)
[2023-10-10] MEDS: metroNIDAZOLE 500 MG/NS PREMIX 100 ML IV SCH ×2 (06:05→13:06)
[2023-10-10] MEDS: LEVOTHYROXINE 0.05 MG TAB PO SCH (06:05)
[2023-10-10] MEDS: BLOOD GLUCOSE MONITORING 1 DEV DEV FS SCH ×2 (06:21→11:30)
[2023-10-10 07:13] LABS: BASOPHILS % (AUTO) 0.3 % (0.0-2.0); EOSINOPHILS % (AUTO) 0.4 % (0.0-4.0); HEMATOCRIT 39.9 % (36-48); HEMOGLOBIN 12.7 g/dL (12.0-16.0); LYMPHOCYTES # (AUTO) 1.1 K/uL (2.5-16.5); LYMPHOCYTES % (AUTO) 12.5 % (20.5-51.1); MEAN CORPUSCULAR HEMOGLOBIN 29 pg (27-31); MEAN CORPUSCULAR HGB CONC 32 g/dL (33-37); MONOCYTES # (AUTO) 0.8 K/uL (0.8-1.0); MONOCYTES % (AUTO) 8.7 % (1.7-9.3); NEUTROPHILS # (AUTO) 6.9 K/uL (1.8-7.7); NEUTROPHILS % (AUTO) 78.1 % (42.2-75.2); PLATELET COUNT (AUTO) 459 K/uL (140-450); RED BLOOD CELL COUNT(AUTO) 4.44 MIL/uL (4.20-5.40); RED CELL DISTRIBUTION WIDTH 15.9 % (11.6-13.7); WHITE BLOOD COUNT (AUTO) 8.8 K/uL (4.8-10.8)
[2023-10-10 09:15] LABS: ALANINE AMINOTRANSFERASE 13 U/L (12-78); ALKALINE PHOSPHATASE 48 U/L (50-136); ANION GAP 8.3 (8-16); ASPARTATE AMINOTRANSFERASE 17 U/L (15-37); CALCIUM 9.2 mg/dL (8.5-10.1); CARBON DIOXIDE 36.1 mmol/L (21-32); CHLORIDE 105 mmol/L (98-107); CREATININE 0.8 mg/dL (0.6-1.3); GLUCOSE 117 mg/dL (74-106); POTASSIUM 3.4 mmol/L (3.5-5.1); SODIUM SERUM 146 mmol/L (136-145); TOTAL BILIRUBIN 0.4 mg/dL (0.0-1.0); UREA NITROGEN, BLOOD 20 mg/dL (7-18)
[2023-10-10] MEDS: FUROSEMIDE 40 MG/4 ML VIAL IVP SCH (09:24)
[2023-10-10] MEDS: PANTOPRAZOLE 40 MG INJ VIAL IVP SCH (09:24)
[2023-10-10] MEDS: DOCUSATE 100 MG/10 ML UDC GT SCH (09:24)
[2023-10-10] MEDS: FENOFIBRATE 48 MG TAB PO SCH (09:25)
[2023-10-10] MEDS: RIVAROXABAN 15 MG TAB PO SCH (09:26)
[2023-10-10] MEDS: hydrALAZINE 25 MG TAB PO SCH (09:27)
[2023-10-10] MEDS: SOTALOL 80 MG TAB PO SCH (09:28)
[2023-10-10] MEDS ORDERED: POTASSIUM CHLORIDE 10 MEQ TABER PO SCH (11:10)
[2023-10-10] MEDS ORDERED: AMOX1TAB8 PO (14:54)
== END 2023-10-10 19:05 | DRG 870 ==
LOC: MED 12:02 → MIC 15:24 → OBSVTOIN 15:24 → MMU 15:24 → MTU 16:04 → MIC 10-01 00:45 → MTU 10-08 16:22
PROVIDERS: ADMIT Internal Medicine; ATTEND Internal Medicine
PROC: 5A1955Z Respiratory Ventilation, Greater than 96 Consecutive Hours (ICD-10-PCS; principal; 2023-10-01)
PROC: 0BH17EZ Insertion of Endotracheal Airway into Trachea, Via Natural or Artificial Opening (ICD-10-PCS; 2023-10-01)
DX: A41.9 Sepsis, unspecified organism (principal); J69.0 Pneumonitis due to inhalation of food and vomit; J96.01 Acute respiratory failure with hypoxia; G93.41 Metabolic encephalopathy; I50.33 Acute on chronic diastolic (congestive) heart failure; N39.0 Urinary tract infection, site not specified; E03.9 Hypothyroidism, unspecified; I11.0 Hypertensive heart disease with heart failure; E78.5 Hyperlipidemia, unspecified; E87.6 Hypokalemia; R13.10 Dysphagia, unspecified; I48.0 Paroxysmal atrial fibrillation; Z88.0 Allergy status to penicillin; Z90.49 Acquired absence of other specified parts of digestive tract; Z79.01 Long term (current) use of anticoagulants; Z88.5 Allergy status to narcotic agent; Z87.891 Personal history of nicotine dependence
CPT/HCPCS: 31500; 36415; 36600; 70450; 71045; 80048; 80053; 81001; 82803; 82948; 83605; 83735; 83880; 84100; 84443; 84484; 85025; 85610; 85730; 87040; 87070; 87081; 87086; 87205; 89220; 92526; 93005; 94002; 94003; 96365; 96375; 97112; 97116; 97163-GP; 97530; 99285; C9113; J1940; J1956; J2001; J2405; J2704; J3480; J3490; J7030; J7042; J7060; Q0092